=== PATIENT | male | born 1950 | race Caucasian/White ===

== ENCOUNTER 2020-10-24 06:50 | Day surgery (SDC) | payer MEDICARE, BC ==
[2020-10-22 10:26] VITALS: BMI 25.9
[2020-10-24] MEDS ORDERED: LACTATED RINGERS 1,000 ML IV ONE (07:45)
[2020-10-24] MEDS ORDERED: LIDOCAINE 1% (10MG/ML) FOR IV START INTRADERMA ONE (07:45)
[2020-10-24 07:59] VITALS: RESP 16; TEMP 97.6
[2020-10-24] MEDS ORDERED: PROPOFOL 10 MG/ML 20 ML VIAL IV ONE (07:59)
--- NOTE | 2020-10-24 08:13 | P.PCN ---
Date of Procedure: 10/24/20 Procedure(s) Performed: BRIEF HISTORY: Patient is a 70-year-old pleasant white male scheduled for an flexible sigmoidoscope as part of follow-up of recurrent rectal polyp that was initially resected a colonoscopy in [address] Rivera. He had multiple colonoscopies since then in the last one was performed in January [address] Mckinney and the polyp was removed and biopsies revealed tubular villous adenoma. He scheduled for follow-up endoscopy today. PROCEDURE PERFORMED: Colonoscopy with biopsy and argon plasma coagulation. PREOPERATIVE DIAGNOSIS: Follow-up recurrent distal rectal polyp. IV sedation per Anesthesia. PROCEDURE: After informed consent was obtained, the patient, was brought into the endoscopy unit. IV sedation was administered by Anesthesia under continuous monitoring. Digital rectal examination was normal. Initially the Olympus CF-160 flexible video colonoscope was then inserted in the rectum, gradually advanced into the descending colon. Careful examination was performed. Prep was excellent. Mucosa of the descending colon, sigmoid colon appeared normal. In the distal rectum about 3 cm above the dentate line there was scarring noted at the site of previous polypectomy and there was a 2-3 mm residual polyp identified. Multiple biopsies were done from this area following which argon plasma coagulation was performed. Retroflexion was performed in the rectum and monitor hemorrhoids were seen. The patient tolerated the procedure well. IMPRESSION: 3 mm residual distal rectal polyp status post multiple biopsies followed by argon plasma coagulation Sigmoid diverticulosis RECOMMENDATIONS: Findings of this examination were discussed with the patient as well as his family. He was advised to follow with the biopsy results and based on the results will plan a repeat sigmoidoscopy in 6 months to one year..
[2020-10-24 08:29] VITALS: BP 104/68; PULSE 70
== END 2020-10-24 08:48 | disposition home or self-care (01) ==
LOC: ORWHC2ENDO 06:50
PROVIDERS: ATTEND Internal Medicine Gastroenterology
DX: K57.30 Diverticulosis of large intestine without perforation or abscess without bleeding (principal); K62.1 Rectal polyp; I25.2 Old myocardial infarction; I11.0 Hypertensive heart disease with heart failure; I50.9 Heart failure, unspecified; E78.5 Hyperlipidemia, unspecified; I48.91 Unspecified atrial fibrillation; G40.909 Epilepsy, unspecified, not intractable, without status epilepticus; Z79.82 Long term (current) use of aspirin; Z79.01 Long term (current) use of anticoagulants; Z95.810 Presence of automatic (implantable) cardiac defibrillator
CPT/HCPCS: 45331; 45346; 88305; J2704

== ENCOUNTER → 2021-05-22 | Day surgery (SDC) | payer MEDICARE, BC ==
[2021-05-21 10:11] VITALS: BMI 25.1
[~2021-05-22] MED LIST: LACTATED RINGERS 1,000 ML IV SCH; LIDOCAINE 1% (10MG/ML) FOR IV START INTRADERMA PRN; PROPOFOL 10 MG/ML 20 ML VIAL IV ONE
[2021-05-22 09:38] VITALS: TEMP 96.3
--- NOTE | 2021-05-22 10:15 | P.PCN ---
Date of Procedure: 05/22/21 Procedure(s) Performed: BRIEF HISTORY: Patient is a 70-year-old pleasant white male scheduled for an elective colonoscopy as a part of follow-up of recurrent rectal polyp and history of colon polyps.He had upper Flexible sigmoid endoscopy in October 2020 and there was a residual rectal polyp noted for which she underwent biopsy and argon plasma coagulation. PROCEDURE PERFORMED: Colonoscopy. PREOPERATIVE DIAGNOSIS: Follow-up colon polyps andl recurrent large rectal polyp.. IV sedation per Anesthesia. PROCEDURE: After informed consent was obtained, the patient, was brought into the endoscopy unit. IV sedation was administered by Anesthesia under continuous monitoring. Digital rectal examination was normal. Initially the Olympus CF-160 flexible video colonoscope was then inserted in the rectum, gradually advanced into the cecum without any difficulty. Careful examination was performed as the scope was gradually being withdrawn. Ileocecal valve and the appendiceal orifice were visualized and appeared normal. Prep was excellent. Mucosa of the cecum, ascending colon, transverse colon, descending colon, sigmoid colon, and rectum appeared normal. Scattered sigmoid diverticulosis seen. In the distal rectum there was scarring noted at the site of previous polypectomy. There was one small area measuring about 2 mm in size at the site of previous polypectomy which was biopsied. Retroflexion was performed in the rectum and no lesions were seen. The patient tolerated the procedure well. IMPRESSION: 2 mm polyp in the rectum status post cold biopsy No residual rectal polyp noted Scattered sigmoid diverticulosis RECOMMENDATIONS: Findings of this examination were discussed with the patient as his family. He was advised to follow with the biopsy results and have a repeat colonoscopy in 3 years.
[2021-05-22 11:22] VITALS: BP 98/56; PULSE 81; RESP 18
== END ==
LOC: ORWHC2ENDO 08:52
PROVIDERS: ATTEND Internal Medicine Gastroenterology
DX: Z12.11 Encounter for screening for malignant neoplasm of colon (principal); K63.5 Polyp of colon; K21.9 Gastro-esophageal reflux disease without esophagitis; Z86.010 Personal history of colon polyps; I11.0 Hypertensive heart disease with heart failure; I50.9 Heart failure, unspecified; E78.5 Hyperlipidemia, unspecified; I48.91 Unspecified atrial fibrillation; Z95.810 Presence of automatic (implantable) cardiac defibrillator; Z86.73 Personal history of transient ischemic attack (TIA), and cerebral infarction without residual deficits; Z79.01 Long term (current) use of anticoagulants; Z79.899 Other long term (current) drug therapy
CPT/HCPCS: 88305; 45380; J2704

== ENCOUNTER 2022-11-23 08:23 | Inpatient (IN) | payer MEDICARE, BC ==
--- NOTE | 2022-11-23 09:19 | ED ---
General Adult HPI - General Chief complaint: Recheck/Abnormal Lab/Rx Stated complaint: Retaining Fluid,history of Congestive Heart Failur Time Seen by Provider: 11/23/22 08:51 Source: patient, family, RN notes reviewed Mode of arrival: wheelchair Limitations: no limitations - History of Present Illness Initial comments: Patient is a pleasant 72-year-old male presents emergency department with concerns with dyspnea. [facility]. Patient had his diuretics changed. Patient has had minimal increase in w eight the past few days and took extra medication however still has some dyspnea. Patient has mild fullness feeling in his chest. No leg swelling. Patient is having increased fatigue. Patient has lost around 25 pounds in the past 2 months prior to medication changes for CHF. - Related Data Home Medications Medication Instructions Recorded Confirmed ALPRAZolam [Xanax] 0.5 mg PO BID PRN 10/22/20 05/21/21 Aspirin 81 mg PO DAILY 10/22/20 05/21/21 Atorvastatin [Lipitor] 40 mg PO HS 10/22/20 05/22/21 Famotidine [Pepcid] 40 mg PO DAILY 10/22/20 05/21/21 Furosemide [Lasix] 80 mg PO Q48H 10/22/20 05/22/21 Meloxicam [Mobic] 7.5 mg PO DAILY 10/22/20 05/22/21 Nitroglycerin Sl Tabs [Nitrostat] 0.4 mg SUBLINGUAL Q5M PRN 10/22/20 05/21/21 [place]-3 Fatty Acids/Fish Oil [Fish 1 each PO DAILY 10/22/20 05/22/21 Oil 1,000 mg Softgel] Sotalol [Betapace] 180 mg PO DAILY 10/22/20 05/21/21 Spironolactone [Aldactone] 25 mg PO DAILY 10/22/20 05/22/21 Warfarin [Coumadin] 2.5 mg PO SUTUWETHSA 10/22/20 05/21/21 Warfarin [Coumadin] 5 mg PO MOFR 10/22/20 05/21/21 carvediloL [Coreg] 25 mg PO BID 10/22/20 05/21/21 levETIRAcetam [Keppra] 1,000 mg PO Q12HR 10/22/20 05/21/21 lisinopriL [Zestril] 10 mg PO HS 10/22/20 05/22/21 Allergies Allergy/AdvReac Type Severity Reaction Status Date / Time No Known Allergies Allergy Verified 11/23/22 08:45 Review of Systems ROS Statement: Those systems with pertinent positive or pertinent negative responses have been documented in the HPI. ROS Other: All systems not noted in ROS Statement are negative. Constitutional: Denies: fever ENT: Denies: ear pain Respiratory: Reports: dyspnea. Denies: cough Cardiovascular: Reports: as per HPI, chest pain Endocrine: Reports: fatigue Musculoskeletal: Denies: back pain Neurological: Denies: headache Past Medical History Past Medical History: Atrial Fibrillation, Heart Failure, CVA/TIA, GERD/Reflux, Hyperlipidemia, Hypertension, Myocardial Infarction ([place]), Seizure Disorder Additional Past Medical History / Comment(s): [place] x3, CVA 10-12 yrs. ago-started keppra after, last seizure >10 yrs. ago, has had colon polyp that keeps coming back Last Myocardial Infarction Date:: August 2002 History of Any Multi-Drug Resistant Organisms: None Reported Past Surgical History: AICD, Heart Catheterization With Stent, Orthopedic Surgery Additional Past Surgical History / Comment(s): colonoscopies, cristel. shoulder surg. as a teen, BILAT CATARACTS REMOVED WITH LENS IMPLANTS Past Anesthesia/Blood Transfusion Reactions: No Reported Reaction Date of Last Stent Placement:: 2002 Type of Cardiac Device: Permanent Pacemaker, AICD Device Placement Date:: [employer]-replaced in 2019 Past Psychological History: Anxiety Smoking Status: Former smoker Past Alcohol Use History: None Reported Past Drug Use History: None Reported - Past Family History Mother Family Medical History: No Reported History General Exam Limitations: no limitations General appearance: alert, in no apparent distress Head exam: Present: atraumatic Eye exam: Present: normal appearance Neck exam: Present: normal inspection Respiratory exam: Present: normal lung sounds bilaterally Cardiovascular Exam: Present: regular rate, normal rhythm GI/Abdominal exam: Present: soft. Absent: tenderness Extremities exam: Present: normal inspection Neurological exam: Present: alert Psychiatric exam: Present: normal affect, normal mood Skin exam: Present: normal color Course Vital Signs 11/23/22 11/23/22 08:45 10:21 Temperature 97.7 F Pulse Rate 86 76 Respiratory 17 18 Rate Blood Pressure 99/54 76/53 O2 Sat by Pulse 96 100 Oximetry EKG Findings - EKG Results: EKG: interpreted by ERMD (Paced rhythm with a rate of 81. Left axis. Wide QRS complex with nonspecific ST-T changes.) Medical Decision Making - Medical Decision Making Repeat EKG shows paced rhythm with a rate of 75. Left axis. Wide QRS complex. Nonspecific ST-T. Called into room. did witness patient become unresponsive and believe he was defibrillated. Patient had no pulse. CPR was done for approximately 15-20 seconds and pulse was obtained. Patient did have paced rhythm on the monitor. Patient did then have return of consciousness and is acting appropriately. Patient only can plaints of continued symptoms which have improved from previous. Discomfort in his chest is mild. Dyspnea is mild. Admitting physic vincent and sheep rancher have been paged. Review of rhythm strip has concerns for possible V. tach. Was pt. sent in by a medical professional or institution (, PA, LOAD OUT SUPERVISOR, urgent c are, hospital, or shelter...) When possible be specific @ -No Did you speak to anyone other than the patient for history (EMS, parent, family, police, friend...)? What history was obtained from this source @ - is present and helps provide history including recent hospitalization Did you review nursing and triage notes (agree or disagree)? Why? @ -I reviewed and agree with nursing and triage notes Were old charts reviewed (outside hosp., previous admission, EMS record, old EKG, old radiological studies, urgent care reports/EKG's, shelter records)? Report findings @ -No old charts reviewed Differential Diagnosis (chest pain, altered mental status, abdominal pain women, abdominal pain men, vaginal bleeding, weakness, fever, dyspnea, syncope, headache, dizziness, GI bleed, back pain, seizure, CVA, palpatations, mental health, musculoskeletal)? @ -Differential Dyspnea: Coronary syndrome, arrhythmia, tamponade, asthma, COPD, pulmonary embolism, pneumonia, pneumothorax, pulmonary effusion, anaphylaxis, diabetic ketoacidosis, flailed chest, pulmonary contusion, diaphragmatic rupture, anemia, neuromus cular, this is not meant to be an all-inclusive list. EKG interpreted by me (3pts min.). @ -As above X-rays interpreted by me (1pt min.). @ -Chest x-ray shows hyperinflation. No acute process. CT interpreted by me (1pt min.). @ -None done U/S interpreted by me (1pt. min.). @ -None done What testing was considered but not performed or refused? (CT, X-rays, U/S, labs)? Why? @ -None What meds were considered but not given or refused? Why? @ -None Did you discuss the management of the patient with other professionals (professionals i.e. DrBobbi, PA, LOAD OUT SUPERVISOR, lab, RT, psych nurse, clinical social work aide, catalytic converter operator helper, teacher, health promotion officer, director case management)? Give summary @ -Case was discussed in detail with Dr. Morelos will admit For Dr. Lucero cheney. Case also discussed with Dr. Mora who will consult and come evaluate patient. Was smoking cessation discussed for >3mins.? @ -No Was critical care preformed (if so, how long)? @ -32 minutes of critical care time Were there social determinants of health that impacted care today? How? (Homelessness, low income, unemployed, alcoholism, drug addiction, transportation, low edu. Level, literacy, decrease access to med. care, assisted, rehab)? @ -No Was there de-escalation of care discussed even if they declined (Discuss DNR or withdrawal of care, Hospice)? DNR status @ -No What co-morbidities impacted this encounter? (DM, HTN, Smoking, COPD, CAD, Cancer, CVA, ARF, Chemo, Hep., AIDS, mental health diagnosis, sleep apnea, morbi d obesity)? @ -None Was patient admitted / discharged? Hospital course, mention meds given and route, prescriptions, significant lab abnormalities, going to OR and other pertinent info. @ -Patient did arrest CPR was done. Probable defibrillator firing. Case was discussed with cardiology who will come evaluate. They recommend holding ramonita tional antidysrhythmic at this time. Patient will be admitted. Admission orders written. Patient is anticoagulated with Coumadin with appropriate INR. Undiagnosed new problem with uncertain prognosis? @ -No Drug Therapy requiring intensive monitoring for toxicity (Heparin, Nitro, Insulin, Cardizem)? @ -No Were any procedures done? @ -No Diagnosis/symptom? @ -Chest pain, dyspnea, cardiac arrest Acute, or Chronic, or Acute on Chronic? @ -Acute, acute, acute Uncomplicated (without systemic symptoms) or Complicated (systemic symptoms)? @ -Chest pain or dyspnea were associated with cardiac arrest and probable V. fib. Side effects of treatment? @ -No Exacerbation, Progression, or Severe Exacerbation? @ -No Poses a threat to life or bodily function? How? (Chest pain, [place], [place], pneumonia, PE, COPD, DKA, ARF, appy, cholecystitis, CVA, Diverticulitis, Homicidal, Suicidal, threat to staff... and all critical care pts) @ -Cardiac arrest poses threat to life. - Lab Data Result diagrams: 11/23/22 09:11/23/22 09: Lab Results 11/23/22 11/23/22 11/23/22 Range/Units : 09:11 12: WBC 10.0 (3.8-10.6) k/uL RBC 5.34 (4.30-5.90) m/uL Hgb 16.2 (13.0-17.5) gm/dL Hct 50.7 (39.0-53.0) % MCV 95.0 (80.0-100.0) fL MCH 30.3 (25.0-35.0) pg MCHC 31.9 (31.0-37.0) g/dL RDW 14.7 (11.5-15.5) % Plt Count 128 L (150-450) k/uL MPV 8.3 Neutrophils % 91 % Lymphocytes % 3 % Monocytes % 4 % Eosinophils % 1 % Basophils % 0 % Neutrophils # 9.1 H (1.3-7.7) k/uL Lymphocytes # 0.3 L (1.0-4.8) k/uL Monocytes # 0.4 (0-1.0) k/uL Eosinophils # 0.1 (0-0.7) k/uL Basophils # 0.0 (0-0.2) k/uL PT 25.6 H (9.0-12.0) sec INR 2.6 H (<1.2) APTT 31.7 H (22.0-30.0) sec Sodium 129 L (137-145) mmol/L Potassium 4.5 (3.5-5.1) mmol/L Chloride 90 L (98-107) mmol/L Carbon Dioxide 25 (22-30) mmol/L Anion Gap 14 mmol/L BUN 38 H (9-20) mg/dL Creatinine 2.01 H (0.66-1.25) mg/dL Est GFR (CKD-EPI)AfAm 37 (>60 ml/min/1.73 sqM) Est GFR (CKD-EPI)NonAf 32 (>60 ml/min/1.73 sqM) Glucose 116 H (74-99) mg/dL Calcium 9.1 (8.4-10.2) mg/dL Total Bilirubin 1.4 H (0.2-1.3) mg/dL AST 89 H (17-59) U/L ALT 149 H (4-49) U/L Alkaline Phosphatase 87 (38-126) U/L Troponin I (0.000-0.034) ng/mL NT-Pro-B Natriuret Pep 98193 pg/mL Total Protein 6.9 (6.3-8.2) g/dL Albumin 4.2 (3.5-5.0) g/dL Urine Color Urine Appearance (Clear) Urine pH (5.0-8.0) Ur Specific [place] (1.001-1.035) Urine Protein (Negative) Urine Glucose (UA) (Negative) Urine Ketones (Negative) Urine Blood (Negative) Urine Nitrite (Negative) Urine Bilirubin (Negative) Urine Urobilinogen (<2.0) mg/dL Ur Leukocyte Esterase (Negative) Urine RBC (0-5) /hpf Urine WBC (0-5) /hpf Urine Bacteria (None) /hpf Hyaline Casts (0-2) /lpf Urine Mucus (None) /hpf Influenza Type A (PCR) (Not Detectd) Influenza Type B (PCR) (Not Detectd) RSV (PCR) (Not Detectd) SARS-CoV-2 (PCR) (Not Detectd) 11/23/22 11/23/22 11/23/22 Range/Units 09:28 09:28 09:28 WBC (3.8-10.6) k/uL RBC (4.30-5.90) m/uL Hgb (13.0-17.5) gm/dL Hct (39.0-53.0) % MCV (80.0-100.0) fL MCH (25.0-35.0) pg MCHC (31.0-37.0) g/dL RDW (11.5-15.5) % Plt Count (150-450) k/uL MPV Neutrophils % % Lymphocytes % % Monocytes % % Eosinophils % % Basophils % % Neutrophils # (1.3-7.7) k/uL Lymphocytes # (1.0-4.8) k/uL Monocytes # (0-1.0) k/uL Eosinophils # (0-0.7) k/uL Basophils # (0-0.2) k/uL PT (9.0-12.0) sec INR (<1.2) APTT (22.0-30.0) sec Sodium (137-145) mmol/L Potassium (3.5-5.1) mmol/L Chloride (98-107) mmol/L Carbon Dioxide (22-30) mmol/L Anion Gap mmol/L BUN (9-20) mg/dL Creatinine (0.66-1.25) mg/dL Est GFR (CKD-EPI)AfAm (>60 ml/min/1.73 sqM) Est GFR (CKD-EPI)NonAf (>60 ml/min/1.73 sqM) Glucose (74-99) mg/dL Calcium (8.4-10.2) mg/dL Total Bilirubin (0.2-1.3) mg/dL AST (17-59) U/L ALT (4-49) U/L Alkaline Phosphatase (38-126) U/L Troponin I 0.086 H* (0.000-0.034) ng/mL NT-Pro-B Natriuret Pep pg/mL Total Protein (6.3-8.2) g/dL Albumin (3.5-5.0) g/dL Urine Color Light Yellow Urine Appearance Clear (Clear) Urine pH 7.0 (5.0-8.0) Ur Specific [place] 1.009 (1.001-1.035) Urine Protein 2+ H (Negative) Urine Glucose (UA) Negative (Negative) Urine Ketones Negative (Negative) Urine Blood Negative (Negative) Urine Nitrite Negative (Negative) Urine Bilirubin Negative (Negative) Urine Urobilinogen <2.0 (<2.0) mg/dL Ur Leukocyte Esterase Negative (Negative) Urine RBC 2 (0-5) /hpf Urine WBC 3 (0-5) /hpf Urine Bacteria Rare H (None) /hpf Hyaline Casts 30 H (0-2) /lpf Urine Mucus Rare H (None) /hpf Influenza Type A (PCR) Not Detected (Not Detectd) Influenza Type B (PCR) Not Detected (Not Detectd) RSV (PCR) Not Detected (Not Detectd) SARS-CoV-2 (PCR) Not Detected (Not Detectd) Critical Care Time Critical Care Time: Yes Total Critical Care Time: 32 Disposition Clinical Impression: Cardiac arrest, Chest pain Disposition: ADMITTED IP TO THIS [facility] Condition: Serious Is patient prescribed a controlled substance at d/c from ED?: No Referrals: Cristiano Love DO [Primary Care Provider] - 1-2 days Time of Disposition: 12:02
[2022-11-23 10:14] LABS: Basophils % (A) 0 %; Eosinophils # (A) 0.1 k/uL (0-0.7); Eosinophils % (A) 1 %; HCT 50.7 % (39.0-53.0); HGB 16.2 gm/dL (13.0-17.5); Lymphocytes # (A) 0.3 k/uL (1.0-4.8); Lymphocytes % (A) 3 %; MCH 30.3 pg (25.0-35.0); MCHC 31.9 g/dL (31.0-37.0); Mean Platelet Volume 8.3; Monocytes # (A) 0.4 k/uL (0-1.0); Monocytes % (A) 4 %; Neutrophils # (A) 9.1 k/uL (1.3-7.7); Neutrophils % (A) 91 %; Platelet Count 128 k/uL (150-450); RBC 5.34 m/uL (4.30-5.90); RDW 14.7 % (11.5-15.5)
[2022-11-23 10:31] LABS: INR 2.6 (<1.2); Prothrombin Time 25.6 sec (9.0-12.0)
[2022-11-23 10:32] LABS: Partial Thromboplastin Time 31.7 sec (22.0-30.0)
--- NOTE | 2022-11-23 10:35 | XR ---
EXAMINATION TYPE: XR chest 2V DATE OF EXAM: 11/23/2022 COMPARISON: None INDICATION: Fatigue fluid retention CHF TECHNIQUE: Single frontal view of the chest is obtained. FINDINGS: The heart size is normal. The pulmonary vasculature is normal. The lungs are clear. Pacemaker overlies the left chest. IMPRESSION: 1. No acute pulmonary process. Radiologic findings may lag behind the clinical course.
[2022-11-23 10:38] LABS: Appearance,Urine Clear (Clear); Bacteria,Urine Rare /hpf; Bilirubin,Urine Negative (Negative); Blood,Urine Negative (Negative); Color,Urine Light Yellow; Glucose,Urine (UA) Negative (Negative); Hyaline Casts,Urine 30 /lpf (0-2); Ketones,Urine Negative (Negative); Leukocyte Esterase,Urine Negative (Negative); Mucus,Urine Rare /hpf; Nitrite,Urine Negative (Negative); Protein,Urine 2+ (Negative); RBC,Urine 2 /hpf (0-5); Specific Gravity,Urine 1.009 (1.001-1.035); Urobilinogen,Urine <2.0 mg/dL (<2.0); WBC,Urine 3 /hpf (0-5)
[2022-11-23 10:49] LABS: ALT 149 U/L (4-49); AST 89 U/L (17-59); African American GFR (CKD) 37 (>60 ml/min/1.73 sqM); Albumin 4.2 g/dL (3.5-5.0); Alkaline Phosphatase 87 U/L (38-126); Anion Gap 14 mmol/L; Blood Urea Nitrogen 38 mg/dL (9-20); Calcium 9.1 mg/dL (8.4-10.2); Carbon Dioxide 25 mmol/L (22-30); Chloride 90 mmol/L (98-107); Glucose 116 mg/dL (74-99); Non-African American GFR(CKD) 32 (>60 ml/min/1.73 sqM); Potassium 4.5 mmol/L (3.5-5.1); Sodium 129 mmol/L (137-145); Total Bilirubin 1.4 mg/dL (0.2-1.3); Total Protein 6.9 g/dL (6.3-8.2)
[2022-11-23 11:13] LABS: NT-Pro-B-Type Natriuretic Pept 33100 pg/mL
[2022-11-23] MEDS ORDERED: ASPIRIN 81 MG PO STA (12:10)
[2022-11-23] MEDS ORDERED: NITROGLYCERIN SL TABS 0.4 MG TAB SUBLINGUAL PRN (12:10)
[2022-11-23] MEDS ORDERED: METOCLOPRAMIDE 5 MG/ML 2 ML VIAL IVP STA (12:38)
[2022-11-23 13:03] LABS: Magnesium 2.2 mg/dL (1.6-2.3)
[2022-11-23] MEDS ORDERED: ALPRAZolam 0.5 MG TAB PO PRN (13:08)
[2022-11-23 13:19] LABS: T4, Free (Free Thyroxine) 1.3 ng/dL (0.78-2.19)
[2022-11-23] MEDS ORDERED: SODIUM CHLORIDE 0.9% 250 ML IV ONE (13:26)
--- NOTE | 2022-11-23 14:11 | P.CRDCN ---
History of Present Illness History of present illness: HISTORY OF PRESENTING ILLNESS Patient is a pleasant 72-year-old male with a history of hypertension, hyperlipidemia, gout, stroke, CAD status post 3 MIs with ischemic cardiomyopathy, atrial fibrillation, VT status post previous shocked approximately 10 years ago who presents secondary to some fatigue, vague malaise and some abdominal bloating and pain. He admits he normally follows with [facility] cardiology and has had extensive workup including initially MD 20 years ago with resultant ischemic cardiomyopathy and AICD. He recently was at [facility] for volume overload and had been placed on torsemide, a change from his normal Lasix. He denies any further edema. He has however had approximately 25 pounds unintentional weight loss over the last 2-3 months which she is not feels just water weight. He has been on sotalol for some time which she believes was related to atrial fibrillation. He denies any concrete fevers however was feeling somewhat feverish and chilled over the last 24 hours. He states normally his kidney function is normal. With his prior MD he had more chest pain. He is admitted related to some more abdominal pressure somewhat radiating up in his chest over the last 24 hours. Currently is not having any. After discharge 1-2 weeks ago from [facility] some changes in his medications he had also had a gout attack however denies any NSAID use. He has been on sotalol for some time however only taking it 120 mg daily. His blood pressure usually borderline in the 90s over 60s. Initial EKG shows no significant Q waves, ventricular paced rhythm at 80 bpm, right bundle branch morphology with prolonged QTC 514. Patient then had an episode where he was resting with his eyes closed unclear if he actually lost consciousness however on monitor noted to have proximally 20 seconds of V. fib and underwent defibrillation 1. Repeat EKG does show atrial paced and intraocular paced rhythm with continued prolonged QTC 550. After defibrillation he states he is feeling fine without any chest pain or pressure. No shortness breath and lying flat on his back. He did have a [place] catheter placed secondary to concern of feeling bloated however only approximately 200 mL urine output and not much urinary retention. REVIEW OF SYSTEMS At the time of my exam: CONSTITUTIONAL: +"feverish" and subjective chills. CARDIOVASCULAR: Denies chest pain, no shortness of breath, orthopnea, PND or palpitations. RESPIRATORY: Denies cough. GASTROINTESTINAL: +abdominal pain radiating to his chest, no diarrhea, constipation, nausea or vomiting. MUSCULOSKELETAL: Denies myalgias. NEUROLOGIC: Denies numbness, tingling or weakness. ENDOCRINE: Denies fatigue, +25 lb weight loss over last 3 months, no polydipsia or polyurina. GENITOURINARY: Denies burning, hematuria or urgency with micturation. HEMATOLOGIC: Denies history of anemia or bleeding. PHYSICAL EXAMINATION Vital signs reviewed. CONSTITUTIONAL: No apparent distress. HEENT: Head is normocephalic. Pupils are equal, round. Sclerae anicteric. Mucous membranes of the mouth are moist. No JVD. No carotid bruit. CHEST EXAMINATION: Lungs are clear to auscultation. No chest wall tenderness is noted on palpation or with deep breathing. HEART EXAMINATION: Regular rate and rhythm. S1, S2 heard. No murmurs, gallops or rub. ABDOMEN: Soft, nontender. Positive bowel sounds. EXTREMITIES: 2+ peripheral pulses, no lower extremity edema and no calf tenderness. NEUROLOGIC EXAMINATION: Patient is awake, alert and oriented x3. ASSESSMENT 1. V. fib likely related to prolonged QT, sotalol use with acute kidney injury 2. Prolonged QT likely related to sotalol and acute kidney injury 3. Acute kidney injury, unclear baseline however patient states no kidney disorder. May be related to over diuresis on new torsemide 4. Chronic systolic heart failure status post AICD 5. Ischemic cardiomyopathy 6. CAD status post PCI 3 7. Abdominal pain radiating into his chest. May be more infectious etiology or other. Not typical of his prior angina 8. Mildly elevated troponins 9. 25 pound weight loss over last 3 months 10. Borderline blood pressures PLAN Patient with V. fib arrest with EKG showing prolonged QTc likely mainly related to use of sotalol with acute kidney injury. Hold any QT will prolonging medications including sotalol. Obtain records from [facility] including baseline creatinine. Acute kidney injury may be related to over diuresis after he was placed on torsemide after last discharge. Currently does not appear volume overloaded and give 250 mL bolus and monitor response. Not having any obvious angina-type symptoms and trend troponins. Check 2-D echo. Given more obvious source of prolonged QT and not having significant angina with kidney injury we will monitor for need for ischemic workup. Interrogate AICD. Further recommendations to follow. Past Medical History Past Medical History: Atrial Fibrillation, Heart Failure, CVA/TIA, GERD/Reflux, Hyperlipidemia, Hypertension, Myocardial Infarction ([place]), Seizure Disorder Additional Past Medical History / Comment(s): MD x3, CVA 10-12 yrs. ago-started keppra after, last seizure >10 yrs. ago, has had colon polyp that keeps coming back Last Myocardial Infarction Date:: August 2002 History of Any Multi-Drug Resistant Organisms: None Reported Past Surgical History: AICD, Heart Catheterization With Stent, Orthopedic Surgery Additional Past Surgical History / Comment(s): colonoscopies, cristel. shoulder surg. as a teen, BILAT CATARACTS REMOVED WITH LENS IMPLANTS Past Anesthesia/Blood Transfusion Reactions: No Reported Reaction Date of Last Stent Placement:: 2002 Type of Cardiac Device: Permanent Pacemaker, AICD Device Placement Date:: Celmatix-replaced in 2019 Past Psychological History: Anxiety Smoking Status: Former smoker Past Alcohol Use History: None Reported Past Drug Use History: None Reported - Past Family History Mother Family Medical History: No Reported History Medications and Allergies Home Medications Medication Instructions Recorded Confirmed Type Aspirin 81 mg PO DAILY 10/22/20 11/23/22 History Atorvastatin [Lipitor] 40 mg PO HS 10/22/20 11/23/22 History Famotidine [Pepcid] 40 mg PO BID 10/22/20 11/23/22 History Nitroglycerin Sl Tabs [Nitrostat] 0.4 mg SL Q5M PRN 10/22/20 11/23/22 History Spironolactone [Aldactone] 25 mg PO DAILY 10/22/20 11/23/22 History Warfarin [Coumadin] 5 mg PO MOFR@1800 10/22/20 11/23/22 History levETIRAcetam [Keppra] 500 mg PO DAILY 10/22/20 11/23/22 History ALPRAZolam [Xanax] 0.25 mg PO DAILY PRN 11/23/22 11/23/22 History Colchicine 0.6 mg PO BID 11/23/22 11/23/22 History Sotalol [Betapace] 120 mg PO DAILY 11/23/22 11/23/22 History Torsemide [Demadex] 100 mg PO DAILY 11/23/22 11/23/22 History Torsemide [Demadex] 100 mg PO DAILY PRN 11/23/22 11/23/22 History Warfarin [Coumadin] 2.5 mg PO SUTUWETHSA@1800 11/23/22 11/23/22 History allopurinoL 100 mg PO DAILY 11/23/22 11/23/22 History carvediloL [Coreg] 12.5 mg PO BID 11/23/22 11/23/22 History levETIRAcetam [Keppra] 1,000 mg PO HS 11/23/22 11/23/22 History lisinopriL [Zestril] 5 mg PO HS 11/23/22 11/23/22 History predniSONE See Taper PO DIRECTED 11/23/22 11/23/22 History Allergies Allergy/AdvReac Type Severity Reaction Status Date / Time No Known Allergies Allergy Verified 11/23/22 13:28 Physical Exam Vitals: Vital Signs Temp Pulse Resp BP Pulse Ox 11/23/22 13:35 98.4 F 75 17 85/58 100 11/23/22 12:00 75 18 91/55 100 11/23/22 11:45 75 18 111/87 100 11/23/22 10:21 76 18 76/53 100 11/23/22 08:45 97.7 F 86 17 99/54 96 Intake and Output 11/22/22 11/23/22 11/23/22 22:59 06:59 14:59 Output Total 100 Balance -100 Output: Urine 100 Uretheral ([place]) 100 Other: Voiding Method Toilet Weight 68.039 kg Results 11/23/22 09:28 11/23/22 09:28 Cardiac Enzymes 11/23/22 11/23/22 Range/Units 09:28 09:28 AST 89 H (17-59) U/L Troponin I 0.086 H* (0.000-0.034) ng/mL Coagulation 11/23/22 Range/Units 09:28 PT 25.6 H (9.0-12.0) sec APTT 31.7 H (22.0-30.0) sec CBC 11/23/22 Range/Units 09:28 WBC 10.0 (3.8-10.6) k/uL RBC 5.34 (4.30-5.90) m/uL Hgb 16.2 (13.0-17.5) gm/dL Hct 50.7 (39.0-53.0) % Plt Count 128 L (150-450) k/uL Comprehensive Metabolic Panel 11/23/22 Range/Units 09:28 Sodium 129 L (137-145) mmol/L Potassium 4.5 (3.5-5.1) mmol/L Chloride 90 L (98-107) mmol/L Carbon Dioxide 25 (22-30) mmol/L BUN 38 H (9-20) mg/dL Creatinine 2.01 H (0.66-1.25) mg/dL Glucose 116 H (74-99) mg/dL Calcium 9.1 (8.4-10.2) mg/dL AST 89 H (17-59) U/L ALT 149 H (4-49) U/L Alkaline Phosphatase 87 (38-126) U/L Total Protein 6.9 (6.3-8.2) g/dL Albumin 4.2 (3.5-5.0) g/dL Current Medications Generic Name Dose Route Start Last Admin Trade Name Freq PRN Reason Stop Dose Admin Alprazolam 0.5 mg 11/23/22 13:08 Alprazolam 0.5 Mg Tab PO BID PRN Anxiety Aspirin 325 mg 11/24/22 09:00 Aspirin 325 Mg Tab PO DAILY QAMAR Atorvastatin Calcium 40 mg 11/23/22 21:00 Atorvastatin 40 Mg Tab PO HS QAMAR Levetiracetam 1,000 mg 11/23/22 21:00 Levetiracetam 500 Mg Tab PO Q12HR QAMAR Nitroglycerin 0.4 mg 11/23/22 12:10 Nitroglycerin Sl Tabs 0.4 Mg Tab SUBLINGUAL Q5M PRN Chest Pain Intake and Output 11/22/22 11/23/22 11/23/22 22:59 06:59 14:59 Output Total 100 Balance -100 Output: Urine 100 Uretheral ([place]) 100 Other: Voiding Method Toilet Weight 68.039 kg Patient Weight 11/24/22 06:59 Weight 68.039 kg 11/23/22 09:28 11/23/22 09:28
[2022-11-23] MEDS ORDERED: MAGNESIUM SULFATE-D5W PMX 1 GM in DEXTROSE/WATER 1 100ML.BAG IVPB SCH (14:15)
--- NOTE | 2022-11-23 15:32 | P.HPIM ---
History of Present Illness H&P Date: 11/23/22 Chief Complaint: Short of breath This is a pleasant 72-year-old patient who follows with Dr. Cristiano Love. Cardiologists are [facility] sandip Ghosh. Back in 2002 patient was being considered for heart transplant. He underwent an cardiac resynchronization therapy along with a pacemaker. That turned out reviewed other effective. Patient had 3 coronary stents placed in 2002. No recent stress test. Patient was admitted to [facility] about 2 weeks ago. There for 4 days. Given IV diuretics. Lost about 8 pounds. Discharged home on different diuretics. Was stable. In the last 2 days patient started noticing decreased urine output. Also notices some chest pressure. Not feeling well. Denies any edema, any orthopnea. In the ER patient had a witnessed cardiac arrest. Apparently was in V. fib. His pacemaker went off. Patient received CPR for about 20 seconds. Had no pulse had loss consciousness. is present. Patient feels back to his normal self. Review of systems: GEN.: Tired EYES: None HEENT: None NECK: None RESPIRATORY: As above CARDIOVASCULAR: As above GASTROINTESTINAL: None GENITOURINARY: None MUSCULOSKELETAL: Some joint pains LYMPHATICS: None HEMATOLOGICAL: None PSYCHIATRY: None NEUROLOGICAL: None Social history: Smoked a pack a day for 35 years stopped in 2002. No alcohol now. 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 . Physical examination: VITAL SIGNS: 97.7, 86, 17, 99/54, 96% room air upon presentation GENERAL: BMI 24.2, reclining in bed awake comfortable. Left-sided pacemaker/AICD EYES: Pupils equal. Conjunctiva normal. HEENT: External appearance of nose and ears normal, oral cavity grossly normal. NECK: JVD not raised; masses not palpable. HEART: First and second heart sounds are normal; no edema. LUNGS: Respiratory rate normal; decreased breath sounds. ABDOMEN: Soft, nontender, liver spleen not palpable, no masses palpable. PSYCH: Alert and oriented x3; mood and affect normal. MUSCULOSKELETAL:No Clubbing/cyanosis;muscles-grossly intact. OA NEUROLOGICAL: Cranial nerves grossly intact; no facial asymmetry, power and sensation grossly intact. LYMPHATICS: No lymph nodes palpable in the axilla and neck INVESTIGATIONS, reviewed in the clinical context: White count 10 hemoglobin 16.2 platelets 128 INR 2.6 sodium 129 potassium 4.5 BUN 38 creatinine 2.01 AST 89 ALT 149 Troponin I 0.086, 0.071 ProBNP 20094 TSH 1.8 Influenza type A, B, RSV, COVID-19: Not detected EKG tracing personally reviewed by me-biventricular paced Chest x-ray film personally reviewed by me-cardiomegaly. Pacemaker. Some hyperinflation Assessment and plan: -Possible underlying unstable angina. Patient has known CAD with 3 stents about 20 years ago. Has not had any recent stress test. Presents with 2 days of chest pressure some shortness of breath. Not feeling well. Cardiology consulted -Episode of ventricular fibrillation with a short cardiac arrest in the ER. Witnessed. AICD went off. Downtime less than a minute. -CAD with 3 stents in 2002 -Seizure disorder Keppra -Gout patient on allopurinol and colchicine -GERD Pepcid -Chronic congestive heart failure from ischemic cardiomyopathy. EF not known. Diuretics as per cardiology. -Cardial renal syndrome. Baseline creatinine not known. We will request colostomy was to [place]. Renal ultrasound. Strict I's and O's. Patient UA is 2+ protein. -Persistent atrial fibrillation Pacemaker. Coumadin. -AICD/pacemaker with cardiac synchronization. Care was discussed with the patient and at the bedside. Questions answered. Cardiology consulted. Given the complexity and severity of patient's condition expect the patient to be in the hospital at least for 2 overnights Past Medical History Past Medical History: Atrial Fibrillation, Heart Failure, CVA/TIA, GERD/Reflux, Hyperlipidemia, Hypertension, Myocardial Infarction ([place]), Seizure Disorder Additional Past Medical History / Comment(s): [place] x3, CVA 10-12 yrs. ago-started keppra after, last seizure >10 yrs. ago, has had colon polyp that keeps coming back Last Myocardial Infarction Date:: August 2002 History of Any Multi-Drug Resistant Organisms: None Reported Past Surgical History: AICD, Heart Catheterization With Stent, Orthopedic Surgery Additional Past Surgical History / Comment(s): colonoscopies, cristel. shoulder surg. as a teen, BILAT CATARACTS REMOVED WITH LENS IMPLANTS Past Anesthesia/Blood Transfusion Reactions: No Reported Reaction Date of Last Stent Placement:: 2002 Type of Cardiac Device: Permanent Pacemaker, AICD Device Placement Date:: BBE-replaced in 2019 Past Psychological History: Anxiety Smoking Status: Former smoker Past Alcohol Use History: None Reported Past Drug Use History: None Reported - Past Family History Mother Family Medical History: No Reported History Medications and Allergies Home Medications Medication Instructions Recorded Confirmed Type Aspirin 81 mg PO DAILY 10/22/20 11/23/22 History Atorvastatin [Lipitor] 40 mg PO HS 10/22/20 11/23/22 History Famotidine [Pepcid] 40 mg PO BID 10/22/20 11/23/22 History Nitroglycerin Sl Tabs [Nitrostat] 0.4 mg SL Q5M PRN 10/22/20 11/23/22 History Spironolactone [Aldactone] 25 mg PO DAILY 10/22/20 11/23/22 History Warfarin [Coumadin] 5 mg PO MOFR@1800 10/22/20 11/23/22 History levETIRAcetam [Keppra] 500 mg PO DAILY 10/22/20 11/23/22 History ALPRAZolam [Xanax] 0.25 mg PO DAILY PRN 11/23/22 11/23/22 History Colchicine 0.6 mg PO BID 11/23/22 11/23/22 History Sotalol [Betapace] 120 mg PO DAILY 11/23/22 11/23/22 History Torsemide [Demadex] 100 mg PO DAILY 11/23/22 11/23/22 History Torsemide [Demadex] 100 mg PO DAILY PRN 11/23/22 11/23/22 History Warfarin [Coumadin] 2.5 mg PO SUTUWETHSA@1800 11/23/22 11/23/22 History allopurinoL 100 mg PO DAILY 11/23/22 11/23/22 History carvediloL [Coreg] 12.5 mg PO BID 11/23/22 11/23/22 History levETIRAcetam [Keppra] 1,000 mg PO HS 11/23/22 11/23/22 History lisinopriL [Zestril] 5 mg PO HS 11/23/22 11/23/22 History predniSONE See Taper PO DIRECTED 11/23/22 11/23/22 History Allergies Allergy/AdvReac Type Severity Reaction Status Date / Time No Known Allergies Allergy Verified 11/23/22 13:28 Physical Exam Vitals: Vital Signs Temp Pulse Resp BP Pulse Ox 11/23/22 12:00 75 18 91/55 100 11/23/22 11:45 75 18 111/87 100 11/23/22 10:21 76 18 76/53 100 11/23/22 08:45 97.7 F 86 17 99/54 96 Intake and Output 11/22/22 11/23/22 11/23/22 22:59 06:59 14:59 Output Total 100 Balance -100 Output: Urine 100 Uretheral ([place]) 100 Other: Voiding Method Toilet Weight 68.039 kg Results CBC & Chem 7: 11/23/22 09:28 11/23/22 09:28 Labs: Abnormal Lab Results - Last 24 Hours (Table) 11/23/22 11/23/22 11/23/22 Range/Units 09: 09: 09:28 Plt Count 128 L (150-450) k/uL Neutrophils # 9.1 H (1.3-7.7) k/uL Lymphocytes # 0.3 L (1.0-4.8) k/uL PT 25.6 H (9.0-12.0) sec INR 2.6 H (<1.2) APTT 31.7 H (22.0-30.0) sec Sodium 129 L (137-145) mmol/L Chloride 90 L (98-107) mmol/L BUN 38 H (9-20) mg/dL Creatinine 2.01 H (0.66-1.25) mg/dL Glucose 116 H (74-99) mg/dL Total Bilirubin 1.4 H (0.2-1.3) mg/dL AST 89 H (17-59) U/L ALT 149 H (4-49) U/L Troponin I (0.000-0.034) ng/mL Urine Protein (Negative) Urine Bacteria (None) /hpf Hyaline Casts (0-2) /lpf Urine Mucus (None) /hpf 11/23/22 11/23/22 Range/Units : 09:28 Plt Count (150-450) k/uL Neutrophils # (1.3-7.7) k/uL Lymphocytes # (1.0-4.8) k/uL PT (9.0-12.0) sec INR (<1.2) APTT (22.0-30.0) sec Sodium (137-145) mmol/L Chloride (98-107) mmol/L BUN (9-20) mg/dL Creatinine (0.66-1.25) mg/dL Glucose (74-99) mg/dL Total Bilirubin (0.2-1.3) mg/dL AST (17-59) U/L ALT (4-49) U/L Troponin I 0.086 H* (0.000-0.034) ng/mL Urine Protein 2+ H (Negative) Urine Bacteria Rare H (None) /hpf Hyaline Casts 30 H (0-2) /lpf Urine Mucus Rare H (None) /hpf
[2022-11-23] MEDS: carvediloL 12.5 MG TAB PO SCH ×2 (16:55→18:11)
[2022-11-23] MEDS: allopurinoL 100 MG TAB PO SCH (17:02)
[2022-11-23] MEDS ORDERED: WARFARIN 2.5 MG TAB PO SCH (18:00)
--- NOTE | 2022-11-23 18:07 | US ---
EXAMINATION TYPE: US renals and bladder DATE OF EXAM: 11/23/2022 COMPARISON: NONE CLINICAL INDICATION: Male, 72 years old with history of renal failure; Abnormal labs. Bladder garcia. EXAM MEASUREMENTS: Right Kidney: 10.8 x 5.1 x 4.6 cm Left Kidney: 10.3 x 4.5 x 5.5 cm The renal cortices are normal in thickness and echotexture without evidence of medical renal disease. Right Kidney: Multiple cysts seen throughout kidney with largest measured medial inferior = 3.1 x 2.6 x 2.6 cm. Left Kidney: Multiple cysts seen throughout kidney with largest measured superior medial = 2.4 x 1.9 x 2.3 cm. Trace fluid seen anterior to cortex. Bladder: Garcia visualized Bilateral Jets not seen due to garcia There is no evidence for hydronephrosis at this point in time. No nephrolithiasis is seen. No micha s are identified. The urinary bladder is anechoic. Bilateral ureteral jets are seen. IMPRESSION: 1. No solid renal mass or hydronephrosis or renal calcification. 2. No ultrasound evidence of medical renal disease.
[2022-11-23] MEDS: COLCHICINE 0.6 MG EACH PO SCH (20:41)
[2022-11-23] MEDS: ATORVASTATIN 40 MG TAB PO SCH (20:41)
[2022-11-23] MEDS: FAMOTIDINE 20 MG TAB PO SCH (20:41)
[2022-11-23] MEDS: levETIRAcetam 500 MG TAB PO SCH (20:41)
[2022-11-23] MEDS: ALPRAZolam 0.25 MG TAB PO PRN (22:57)
[2022-11-24] MEDS: carvediloL 12.5 MG TAB PO SCH ×2 (06:21→17:25)
[2022-11-24 08:27] LABS: INR 2.8 (<1.2); Prothrombin Time 26.9 sec (9.0-12.0)
[2022-11-24] MEDS: allopurinoL 100 MG TAB PO SCH (08:43)
[2022-11-24] MEDS: levETIRAcetam 500 MG TAB PO SCH ×2 (08:43→20:29)
[2022-11-24] MEDS: ASPIRIN 81 MG PO SCH (08:44)
[2022-11-24] MEDS: FAMOTIDINE 20 MG TAB PO SCH (08:44)
[2022-11-24] MEDS: COLCHICINE 0.6 MG EACH PO SCH ×2 (08:45→20:29)
[2022-11-24 08:53] LABS: African American GFR (CKD) 29 (>60 ml/min/1.73 sqM); Anion Gap 8 mmol/L; Blood Urea Nitrogen 56 mg/dL (9-20); Carbon Dioxide 28 mmol/L (22-30); Chloride 90 mmol/L (98-107); Glucose 104 mg/dL (74-99); Non-African American GFR(CKD) 25 (>60 ml/min/1.73 sqM); Potassium 3.8 mmol/L (3.5-5.1); Sodium 126 mmol/L (137-145)
[2022-11-24] MEDS ORDERED: ASPIRIN 325 MG TAB PO SCH (09:00)
[2022-11-24] MEDS: POTASSIUM CHLORIDE ER 20 MEQ TAB.ER PO SCH (10:19)
[2022-11-24] MEDS: FUROSEMIDE 10 MG/ML 4 ML VIAL IV SCH ×2 (10:19→15:43)
--- NOTE | 2022-11-24 13:36 | CA ---
Transthoracic Echo Report Name: Kelvin Burgos Age: 72 Gender: M : 1950 Exam Date: 11/24/2022 09:03 Exam Location: [facility] Ht (in): 66 Wt (lb): 150 Ordering Physician: Bernard Mora DO ([email or web address]) Attending/Referring Phys: Ad Trafficker Farrukh Reno Procedure CPT: Indications: re: LV function Cardiac Hx: Technical Quality: Fair Contrast 1: Total Dose (mL): Contrast 2: Total Dose (mL): MEASUREMENTS (Male / Female) Normal Values 2D ECHO LV Diastolic Diameter PLAX 6.6 cm 4.2 - 5.9 / 3.9 - 5.3 cm LV Systolic Diameter PLAX 6.1 cm IVS Diastolic Thickness 1.2 cm 0.6 - 1.0 / 0.6 - 0.9 cm LVPW Diastolic Thickness 1.1 cm 0.6 - 1.0 / 0.6 - 0.9 cm LV Relative Wall Thickness 0.4 RV Internal Dim ED PLAX 4.1 cm LVOT Diameter 2.5 cm Aortic Root Diameter 3.5 cm LA Systolic Diameter LX 3.6 cm 3.0 - 4.0 / 2.7 - 3.8 cm LV Diastolic Volume MOD BP 278.1 cm??? 67 - 155 / 56 - 104 cm??? LV Systolic Volume MOD BP 214.8 cm??? 22 - 58 / 19 - 49 cm??? LV Ejection Fraction MOD BP 22.8 % >= 55 % LV Cardiac Index MOD BP 2655.6 cm???/min???m??? LV Diastolic Volume MOD 4C 183.8 cm??? LV Systolic Volume MOD 4C 106.6 cm??? LV Ejection Fraction MOD 4C 42.0 % LV Cardiac Index MOD 4C 3239.4 cm???/min???m??? LV Diastolic Length 4C 7.9 cm LV Systolic Length 4C 6.8 cm LV Diastolic Volume MOD 2C 346.7 cm??? LV Systolic Volume MOD 2C 314.5 cm??? LV Ejection Fraction MOD 2C 9.3 % LV Cardiac Index MOD 2C 1352.1 cm???/min???m??? LV Diastolic Length 2C 9.6 cm LV Systolic Length 2C 9.6 cm LA Volume 70.4 cm??? 18 - 58 / 22 - 52 cm??? DOPPLER AV Peak Velocity 158.3 cm/s AV Peak Gradient 10.0 mmHg AV Mean Velocity 138.2 cm/s AV Mean Gradient 8.1 mmHg AV Velocity Time Integral 42.1 cm LVOT Peak Velocity 42.9 cm/s LVOT Peak Gradient 0.7 mmHg LVOT Velocity Time Integral 6.2 cm LVOT Stroke Volume 29.4 cm??? LVOT Stroke Volume Index 16.6 ml/m??? LVOT Cardiac Index 1233.0 cm???/min???m??? AV Area Cont Eq vti 0.7 cm??? AV Area Cont Eq pk 1.3 cm??? MV Peak Velocity 99.9 cm/s MV Peak Gradient 4.0 mmHg MV Mean Velocity 40.3 cm/s MV Mean Gradient 1.0 mmHg MV Velocity Time Integral 18.3 cm MR Peak Velocity 340.2 cm/s MR Peak Gradient 46.3 mmHg Mitral E Point Velocity 96.7 cm/s Mitral A Point Velocity 35.9 cm/s Mitral E to A Ratio 2.7 MV Deceleration Time 198.6 ms MV E' Velocity 4.0 cm/s Mitral E to MV E' Ratio 23.9 TR Peak Velocity 282.2 cm/s TR Peak Gradient 31.8 mmHg Right Ventricular Systolic Press 34.9 mmHg PV Peak Velocity 89.2 cm/s PV Peak Gradient 3.2 mmHg FINDINGS Left Ventricle Moderate to severe left ventricular dilatation. Left ventricular ejection fraction is estimated at 10-15 %. Global hypokinesis Right Ventricle Mild to moderate right ventricular dilatation. RVSP= 35 mmHg. catheter/pacemaker wire in the right ventricular cavity. Right Atrium RA Area= 20cm2. Left Atrium LA volume index= 40ml/m2 Mitral Valve Structurally normal mitral valve. Severe MR. Aortic Valve Trileaflet aortic valve. Mild aortic regurgitation. No aortic stenosis. Tricuspid Valve Structurally normal tricuspid valve. Moderate TR. Pulmonic Valve Pulmonic valve thickened with good excursion. Mild PI. Pericardium Normal pericardium. Aorta Normal size aortic root . CONCLUSIONS 1. Dilated right ventricle with severe global hypokinesis 2. Severe mitral was moderate tricuspid regurgitation 3. Mild aortic regurgitation 4. A wire is noted in the right ventricle. Previewed by: Dr. Tamia Lagos MD (Electronically Signed) Final Date: 24 November 2022 13:34
[2022-11-24] MEDS: ALPRAZolam 0.25 MG TAB PO PRN (15:43)
--- NOTE | 2022-11-24 16:10 | P.PN ---
Progress Note - Text Progress Note Date: 11/24/22 Chief Complaint: Short of breath This is a pleasant 72-year-old patient who follows with Dr. Cristiano Love. Cardiologists are [facility] sandip Ghosh. Back in 2002 patient was being considered for heart transplant. He underwent an cardiac resynchronization therapy along with a pacemaker. That turned out reviewed other effective. Patient had 3 coronary stents placed in 2002. No recent stress test. Patient was admitted to [facility] about 2 weeks ago. There for 4 days. Given IV diuretics. Lost about 8 pounds. Discharged home on different diuretics. Was stable. In the last 2 days patient started noticing decreased urine output. Also notices some chest pressure. Not feeling well. Denies any edema, any orthopnea. In the ER patient had a witnessed cardiac arrest. Apparently was in V. fib. His pacemaker went off. Patient received CPR for about 20 seconds. Had no pulse had loss consciousness. is present. Patient feels back to his normal self. Admitted with unstable angina. Episode of V. fib in the ER. Possible CHF. November 24: Breathing better. Sitting edge of the bed. Seen by cardiology. Jenks a prolonged QT interval. Possibly from sotalol. Sotalol was discontinued. Seen by Dr. REDDY Bailey from cardiology. Started on IV Lasix. Nephrology consulted. Strict I's and O's. Discussed with patient and . Active Medications Allopurinol (Allopurinol 100 Mg Tab) 100 mg PO DAILY [facility] Last Admin: 11/24/22 08:43 Dose: 100 mg Alprazolam (Alprazolam 0.25 Mg Tab) 0.25 mg PO DAILY PRN PRN Reason: Anxiety Last Admin: 11/24/22 15:43 Dose: 0.25 mg Aspirin (Aspirin 81 Mg) 81 mg PO DAILY [facility] Last Admin: 11/24/22 08:44 Dose: 81 mg Atorvastatin Calcium (Atorvastatin 40 Mg Tab) 40 mg PO HS [facility] Last Admin: 11/23/22 20:41 Dose: 40 mg Carvedilol (Carvedilol 12.5 Mg Tab) 12.5 mg PO BID-W/MEALS [facility] Last Admin: 11/24/22 06:21 Dose: 12.5 mg Colchicine (Colchicine 0.6 Mg Each) 0.6 mg PO BID [facility] Last Admin: 11/24/22 08:45 Dose: 0.6 mg Famotidine (Famotidine 20 Mg Tab) 20 mg PO DAILY [facility] Furosemide (Furosemide 10 Mg/Ml 4 Ml Vial) 40 mg IV Q8HR [facility] Last Admin: 11/24/22 15:43 Dose: 40 mg Levetiracetam (Levetiracetam 500 Mg Tab) 500 mg PO QAM [facility] Last Admin: 11/24/22 08:43 Dose: 500 mg Levetiracetam (Levetiracetam 500 Mg Tab) 1,000 mg PO HS [facility] Last Admin: 11/23/22 20:41 Dose: 1,000 mg Miscellaneous Information (Warfarin Per Pharmacy) 0 each MISCELLANE DIRECTED PRN PRN Reason: PHARMACY DOSING WARFARIN Nitroglycerin (Nitroglycerin Sl Tabs 0.4 Mg Tab) 0.4 mg SUBLINGUAL Q5M PRN PRN Reason: Chest Pain Potassium Chloride (Potassium Chloride Er 20 Meq Tab.Er) 20 meq PO DAILY [facility] Last Admin: 11/24/22 10:19 Dose: 20 meq Warfarin Sodium (Warfarin 2.5 Mg Tab) 2.5 mg PO SUTUWETHSA@1800 QAMAR; Protocol Last Admin: 11/23/22 18:11 Dose: 2.5 mg Warfarin Sodium (Warfarin 5 Mg Tab) 5 mg PO MOFR@1800 QAMAR; Protocol Social history: Smoked a pack a day for 35 years stopped in 2002. No alcohol now. 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 . Physical examination: VITAL SIGNS: 98.4, 75, 16, 91/82, 96% room air GENERAL: Sitting at the edge of the bed, eating lunch. Left-sided pacemaker/AICD EYES: Pupils equal. Conjunctiva normal. HEENT: External appearance of nose and ears normal, oral cavity grossly normal. NECK: JVD not raised; masses not palpable. HEART: First and second heart sounds are normal; no edema. LUNGS: Respiratory rate normal; decreased breath sounds. ABDOMEN: Soft, nontender, liver spleen not palpable, no masses palpable. PSYCH: Alert and oriented x3; mood and affect normal. MUSCULOSKELETAL:No Clubbing/cyanosis;muscles-grossly intact. OA INVESTIGATIONS, reviewed in the clinical context: 2-D echocardiogram: EF 10-15%. Global hypokinesis. Severe mitral regurgitation. Moderate TR. November 24: INR 2.8. Sodium 126. Potassium 3.8. BUN 56 creatinine. Creatinine 2.47 White count 10 hemoglobin 16.2 platelets 128 INR 2.6 sodium 129 potassium 4.5 BUN 38 creatinine 2.01 AST 89 ALT 149 Troponin I 0.086, 0.071 ProBNP 38771 TSH 1.8 Influenza type A, B, RSV, COVID-19: Not detected EKG tracing personally reviewed by me-biventricular paced Chest x-ray film personally reviewed by me-cardiomegaly. Pacemaker. Some hyperinflation Assessment and plan: -Episode of ventricular fibrillation with a short cardiac arrest in the ER. Jenks to be secondary to prolonged QT interval from sotalol. Witnessed. AICD went off. Downtime less than a minute. Sotalol discontinued. -CAD with 3 stents in 2002 -Seizure disorder Keppra -Gout patient on allopurinol and colchicine -GERD Pepcid -Acute on Chronic congestive heart failure from ischemic cardiomyopathy. EF 10- 15%. Followed by cardiology Dr. REDDY Bailey. Started on IV Lasix 40 mg every 8. -Cardial renal syndrome. Baseline creatinine not known. We will request colostomy was to [place]. Renal ultrasound. Strict I's and O's. Patient UA is 2+ protein.: Worsening Admission creatinine 2.01. Cardiology consulted. -Persistent atrial fibrillation Pacemaker. Coumadin. -AICD/pacemaker with cardiac synchronization. -Hyponatremia, likely from volume contraction secondary to Lasix.: Worsening Follow closely Started on IV Lasix. Nephrology consulted. Strict I's and O's. Follow labs closely. Past Medical History Past Medical History: Atrial Fibrillation, Heart Failure, CVA/TIA, GERD/Reflux, Hyperlipidemia, Hypertension, Myocardial Infarction (CT), Seizure Disorder Additional Past Medical History / Comment(s): CT x3, CVA 10-12 yrs. ago-started keppra after, last seizure >10 yrs. ago, has had colon polyp that keeps coming back Last Myocardial Infarction Date:: August 2002 History of Any Multi-Drug Resistant Organisms: None Reported Past Surgical History: AICD, Heart Catheterization With Stent, Orthopedic Surgery Additional Past Surgical History / Comment(s): colonoscopies, cristel. shoulder surg. as a teen, BILAT CATARACTS REMOVED WITH LENS IMPLANTS Past Anesthesia/Blood Transfusion Reactions: No Reported Reaction Date of Last Stent Placement:: 2002 Type of Cardiac Device: Permanent Pacemaker, AICD Device Placement Date:: Swip[place]-replaced in 2019 Past Psychological History: Anxiety Smoking Status: Former smoker Past Alcohol Use History: None Reported Past Drug Use History: None Reported - Past Family History Mother Family Medical History: No Reported History Medications and Allergies Home Medications Medication Instructions Recorded Confirmed Type Aspirin 81 mg PO DAILY 10/22/20 11/23/22 History Atorvastatin [Lipitor] 40 mg PO HS 10/22/20 11/23/22 History Famotidine [Pepcid] 40 mg PO BID 10/22/20 11/23/22 History Nitroglycerin Sl Tabs [Nitrostat] 0.4 mg SL Q5M PRN 10/22/20 11/23/22 History Spironolactone [Aldactone] 25 mg PO DAILY 10/22/20 11/23/22 History Warfarin [Coumadin] 5 mg PO MOFR@1800 10/22/20 11/23/22 History levETIRAcetam [Keppra] 500 mg PO DAILY 10/22/20 11/23/22 History ALPRAZolam [Xanax] 0.25 mg PO DAILY PRN 11/23/22 11/23/22 History Colchicine 0.6 mg PO BID 11/23/22 11/23/22 History Sotalol [Betapace] 120 mg PO DAILY 11/23/22 11/23/22 History Torsemide [Demadex] 100 mg PO DAILY 11/23/22 11/23/22 History Torsemide [Demadex] 100 mg PO DAILY PRN 11/23/22 11/23/22 History Warfarin [Coumadin] 2.5 mg PO SUTUWETHSA@1800 11/23/22 11/23/22 History allopurinoL 100 mg PO DAILY 11/23/22 11/23/22 History carvediloL [Coreg] 12.5 mg PO BID 11/23/22 11/23/22 History levETIRAcetam [Keppra] 1,000 mg PO HS 11/23/22 11/23/22 History lisinopriL [Zestril] 5 mg PO HS 11/23/22 11/23/22 History predniSONE See Taper PO DIRECTED 11/23/22 11/23/22 History Allergies Allergy/AdvReac Type Severity Reaction Status Date / Time No Known Allergies Allergy Verified 11/23/22 13:28
--- NOTE | 2022-11-24 17:44 | P.NPCON ---
History of Present Illness - Reason for Consult acute renal failure - History of Present Illness Patient is a 72 yr. old male with h/o CHF , CAD, A fib, CVA who presents with c/o shortness of brreath and increased weight gain. S/p brief cardiac arrest in ER, less than 1 minute. Has implanted defibrillator which fired. Currently being diuresed. Maintained on IV lasix q 8 hrs. Feeling much better with improved leg edema and SOB. Patient has indwelling garcia cathetr. ? Retention. Creatinine increased from 2.0 to 2.4 today. Sodium dropped from 129 to 126 today. BP has been low in the 80s and occasional 70s as well. Patient states that he was informed of weak kidney function at [facility] during recent hospitalization 2 weeks ago but has not seen a recruiter manager. No previous labs available for comparison. Review of Systems as per HPI Past Medical History Past Medical History: Atrial Fibrillation, Heart Failure, CVA/TIA, GERD/Reflux, Hyperlipidemia, Hypertension, Myocardial Infarction (CA), Seizure Disorder Additional Past Medical History / Comment(s): CA x3, CVA 10-12 yrs. ago-started keppra after, last seizure >10 yrs. ago, has had colon polyp that keeps coming back Last Myocardial Infarction Date:: August 2002 History of Any Multi-Drug Resistant Organisms: None Reported Past Surgical History: AICD, Heart Catheterization With Stent, Orthopedic Surgery Additional Past Surgical History / Comment(s): colonoscopies, cristel. shoulder surg. as a teen, BILAT CATARACTS REMOVED WITH LENS IMPLANTS Past Anesthesia/Blood Transfusion Reactions: No Reported Reaction Date of Last Stent Placement:: 2002 Type of Cardiac Device: Permanent Pacemaker, AICD Device Placement Date:: [employer]-replaced in 2019 Past Psychological History: Anxiety Smoking Status: Former smoker Past Alcohol Use History: None Reported Past Drug Use History: None Reported - Past Family History Mother Family Medical History: No Reported History Medications and Allergies Home Medications Medication Instructions Recorded Confirmed Type Aspirin 81 mg PO DAILY 10/22/20 11/23/22 History Atorvastatin [Lipitor] 40 mg PO HS 10/22/20 11/23/22 History Famotidine [Pepcid] 40 mg PO BID 10/22/20 11/23/22 History Nitroglycerin Sl Tabs [Nitrostat] 0.4 mg SL Q5M PRN 10/22/20 11/23/22 History Spironolactone [Aldactone] 25 mg PO DAILY 10/22/20 11/23/22 History Warfarin [Coumadin] 5 mg PO MOFR@1800 10/22/20 11/23/22 History levETIRAcetam [Keppra] 500 mg PO DAILY 10/22/20 11/23/22 History ALPRAZolam [Xanax] 0.25 mg PO DAILY PRN 11/23/22 11/23/22 History Colchicine 0.6 mg PO BID 11/23/22 11/23/22 History Sotalol [Betapace] 120 mg PO DAILY 11/23/22 11/23/22 History Torsemide [Demadex] 100 mg PO DAILY 11/23/22 11/23/22 History Torsemide [Demadex] 100 mg PO DAILY PRN 11/23/22 11/23/22 History Warfarin [Coumadin] 2.5 mg PO SUTUWETHSA@1800 11/23/22 11/23/22 History allopurinoL 100 mg PO DAILY 11/23/22 11/23/22 History carvediloL [Coreg] 12.5 mg PO BID 11/23/22 11/23/22 History levETIRAcetam [Keppra] 1,000 mg PO HS 11/23/22 11/23/22 History lisinopriL [Zestril] 5 mg PO HS 11/23/22 11/23/22 History predniSONE See Taper PO DIRECTED 11/23/22 11/23/22 History Allergies Allergy/AdvReac Type Severity Reaction Status Date / Time No Known Allergies Allergy Verified 11/23/22 13:28 Physical Exam Vitals: Vital Signs Temp Pulse Resp BP Pulse Ox 11/24/22 16:00 97.3 F L 85 16 99/65 96 11/24/22 12:00 98.4 F 75 16 91/82 96 11/24/22 08:46 97 11/24/22 08:00 97.4 F L 82 16 101/68 98 11/24/22 03:44 97.4 F L 82 18 103/66 98 11/23/22 23:27 98.1 F 85 18 96/70 98 11/23/22 20:00 98.3 F 75 18 93/54 95 11/23/22 19:08 98.1 F 75 17 108/62 100 Intake and Output 11/24/22 11/24/22 11/24/22 06:59 14:59 22:59 Intake Total 600 Output Total 400 800 Balance -400 -200 Intake: Oral 600 Output: Urine 400 800 Other: Voiding Method Indwelling Catheter Indwelling Catheter # Bowel Movements 1 Awake comfortable Alert and oriented x3 Lungs are clear CVS S1 and S2 Abdomen is soft, nontender. Extremities show no edema. Results - Lab Results Most recent lab results Calcium 8.0 mg/dL (8.4-10.2) L 11/24/22 07:29 Magnesium 2.2 mg/dL (1.6-2.3) 11/23/22 09:28 11/23/22 09:28 11/24/22 07:29 Assessment and Plan Assessment: 1. Acute kidney injury, ischemic ATN from low BP and cardiorenal syndrome. Currently non oliguric. U/A shows 2+ protein, no blood. USS shows no obstruction. S/p diuresis with improved volume status. 2. Chronic kidney disease, most likely stage 3, baseline cr. not available. U/A shows 2+ proteinuriawhich needs w/u. No h/o DM. 3. Volume overload, improved. 4. Hypotension from poor cardiac output. 5. Cadiomyopathy , EF 10-15% 6. S/p cardiac arrest, V fib, s/p firing from defibrillator 7. Hyponatremia with CHF, s/p recent diuresis. Plan: Decrease lasix. Check cortisol level Samsca x1 Add midodrine Repeat labs in am Maintain salt restriction. Patient will need outpatient f/u for CKD. Thank you for the consultation. We will continue to follow the patient with you.
--- NOTE | 2022-11-24 17:45 | CT ---
EXAMINATION TYPE: CT brain wo con CT DLP: 1112.4 mGycm, Automated exposure control for dose reduction was used. DATE OF EXAM: 11/24/2022 5:37 PM COMPARISON: None. CLINICAL INDICATION:Male, 72 years old with history of ALTERED MENTAL STATUS, AMS. hx of stroke TECHNIQUE: Brain: Axial CT images of the brain were obtained with coronal and sagittal reformats created and rev iewed. Contrast used: None. Oral contrast used: None. FINDINGS: Brain: Extra-axial spaces: No abnormal extra-axial fluid collections. Ventricular system: Within normal limits Cerebral parenchyma: Remote appearing left parietal region/temporal region injury No acute intraparen chymal hemorrhage or mass effect. The saldana-white junction is well differentiated. Cerebellum: Unremarkable. Mass effect: No evidence of midline shift. Intracranial vasculature: Atherosclerotic calcifications of the intracranial vessels. Soft tissues: Normal. Calvarium/osseous structures: No depressed skull fracture. Paranasal sinuses and mastoid air cells: Mild scattered paranasal sinus disease. Visualized orbits: Bilaterally aphakia IMPRESSION: Remote left parietal/temporal injury. No evidence for acute/subacute CVA.
[2022-11-24] MEDS: MIDODRINE 5 MG TAB PO SCH (17:58)
[2022-11-24] MEDS ORDERED: WARFARIN 5 MG TAB PO SCH (18:00)
[2022-11-24 18:07] LABS: African American GFR (CKD) 31 (>60 ml/min/1.73 sqM); Anion Gap 9 mmol/L; Blood Urea Nitrogen 58 mg/dL (9-20); Calcium 7.8 mg/dL (8.4-10.2); Carbon Dioxide 26 mmol/L (22-30); Chloride 92 mmol/L (98-107); Glucose 140 mg/dL (74-99); Non-African American GFR(CKD) 27 (>60 ml/min/1.73 sqM); Potassium 3.7 mmol/L (3.5-5.1); Sodium 127 mmol/L (137-145)
[2022-11-24 18:13] LABS: Chol/HDL Ratio 2.62 Ratio; LDL Cholesterol,Calculated 34.8 mg/dL (0.0-131.0)
[2022-11-24] MEDS: ATORVASTATIN 40 MG TAB PO SCH (20:29)
--- NOTE | 2022-11-25 06:02 | PN ---
PROGRESS NOTE This is a 72-year-old gentleman with history of severe ischemic cardiomyopathy under the care of Dr. Augie Estrada at [facility], came into the hospital, had a shock with AICD for what appears to be a ventricular tachycardia, prolonged QT, was seen by Dr. Mora. Sotalol was discontinued. He feels better. Has not had any further arrhythmia. He is in congestive heart failure, but seems to be reasonably compensated. His BNP is quite high. I am recommending that we give Lasix 40 mg q.8 hours IV push. He has fine rales over both bases and JVD is evident. Heart exam reveals S1, S2 with a short systolic murmur. I will check a BNP, magnesium tomorrow and also give him potassium 20 mEq. Continue his other medications. No further arrhythmia, is resting comfortably. Echo reveals ejection fraction of 20%to 25%. Enlargement of left ventricle is noted. The patient has ICD. If he has no further arrhythmia and if he is comfortable and his electrolytes are acceptable, he can be discharged and follow up at [facility]. He has chronic kidney disease as well, but creatinine has gone up. There may be an acute injury component as well. Prognosis remains guarded. MMODL / IJN: [id number] /
[2022-11-25] MEDS: MIDODRINE 5 MG TAB PO SCH ×2 (06:52→17:19)
[2022-11-25] MEDS: carvediloL 6.25 MG TAB PO SCH ×2 (06:52→17:19)
[2022-11-25] MEDS ORDERED: FAMOTIDINE 20 MG TAB PO SCH (09:00)
[2022-11-25] MEDS ORDERED: FUROSEMIDE 10 MG/ML 4 ML VIAL IV SCH (09:00)
[2022-11-25 09:15] LABS: INR 3.3 (<1.2); Prothrombin Time 32.5 sec (9.0-12.0)
[2022-11-25] MEDS ORDERED: SPIRONOLACTONE 25 MG TAB PO SCH (09:15)
[2022-11-25] MEDS ORDERED: TORSEMIDE 20 MG TAB PO SCH (09:15)
[2022-11-25] MEDS ORDERED: FUROSEMIDE 10 MG/ML 4 ML VIAL IV STA (09:19)
[2022-11-25] MEDS: COLCHICINE 0.6 MG EACH PO SCH ×2 (09:32→22:34)
[2022-11-25] MEDS: levETIRAcetam 500 MG TAB PO SCH ×2 (09:32→22:34)
[2022-11-25] MEDS: allopurinoL 100 MG TAB PO SCH (09:32)
[2022-11-25] MEDS: ASPIRIN 81 MG PO SCH (09:32)
[2022-11-25] MEDS: POTASSIUM CHLORIDE ER 20 MEQ TAB.ER PO SCH (09:32)
[2022-11-25 09:40] LABS: African American GFR (CKD) 40 (>60 ml/min/1.73 sqM); Anion Gap 11 mmol/L; Blood Urea Nitrogen 59 mg/dL (9-20); Calcium 7.6 mg/dL (8.4-10.2); Carbon Dioxide 20 mmol/L (22-30); Chloride 95 mmol/L (98-107); Glucose 91 mg/dL (74-99); Non-African American GFR(CKD) 35 (>60 ml/min/1.73 sqM); Potassium 3.5 mmol/L (3.5-5.1); Sodium 126 mmol/L (137-145)
[2022-11-25 10:05] LABS: NT-Pro-B-Type Natriuretic Pept 31900 pg/mL
[2022-11-25] MEDS ORDERED: TOLVAPTAN 15 MG TABLET PO ONE (11:00)
--- NOTE | 2022-11-25 11:20 | P.PN ---
Subjective Patient is seen for follow-up for acute kidney injury. He has been diuresed for volume overload and CHF exacerbation. Underlying severe cardiomyopathy with EF of 10-15%. Diuretics have been decreased. Serum sodium is at 126 and creatinine decreased to 1.89 from 2.3 yesterday. Switched to oral diuretics. Torsemide that patient was taking at home prior to admission. Objective - Vital Signs Vital signs: Vital Signs Temp 98.6 F 11/25/22 08:00 Pulse 77 11/25/22 08:00 Resp 18 11/25/22 08:00 BP 90/59 11/25/22 08:00 Pulse Ox 98 11/25/22 08:00 FiO2 Intake & Output 11/24/22 11/25/22 11/25/22 18:59 06:59 18:59 Intake Total 718 180 Output Total 800 750 Balance -82 -750 180 Weight 67.3 kg Intake: Oral 718 180 Output: Urine 800 750 Other: Voiding Method Indwelling Catheter Indwelling Catheter # Voids 1 # Bowel Movements 1 - Exam Patient is awake, comfortable, no acute distress Examination of the heart S1 and S2 Examination of the lungs bilateral breath sounds are heard Abdomen is soft nontender Examination of lower extremity shows no evidence of edema DIRECTOR MERIT SYSTEM exam grossly intact - Labs CBC & Chem 7: 11/23/22 09:28 11/25/22 08:26 Labs: Abnormal Lab Results - Last 24 Hours (Table) 11/24/22 11/24/22 11/25/22 Range/Units 07:29 16:58 08:26 PT 32.5 H (9.0-12.0) sec INR 3.3 H (<1.2) Sodium 127 L (137-145) mmol/L Chloride 92 L (98-107) mmol/L Carbon Dioxide (22-30) mmol/L BUN 58 H (9-20) mg/dL Creatinine 2.32 H (0.66-1.25) mg/dL Glucose 140 H (74-99) mg/dL Calcium 7.8 L (8.4-10.2) mg/dL HDL Cholesterol 37.40 L (40.00-60.00) mg/dL 11/25/22 Range/Units 08:26 PT (9.0-12.0) sec INR (<1.2) Sodium 126 L (137-145) mmol/L Chloride 95 L (98-107) mmol/L Carbon Dioxide 20 L (22-30) mmol/L BUN 59 H (9-20) mg/dL Creatinine 1.89 H (0.66-1.25) mg/dL Glucose (74-99) mg/dL Calcium 7.6 L (8.4-10.2) mg/dL HDL Cholesterol (40.00-60.00) mg/dL Assessment and Plan Assessment: 1. Acute kidney injury, ischemic ATN from low BP and cardiorenal syndrome. Currently non oliguric. U/A shows 2+ protein, no blood. USS shows no obstruction. S/p diuresis with improved volume status. 2. Chronic kidney disease, most likely stage 3, baseline cr. not available. U/A shows 2+ proteinuria which needs w/u. No h/o DM. 3. Volume overload, improved. 4. Hypotension from poor cardiac output. 5. Cadiomyopathy , EF 10-15% 6. S/p cardiac arrest, V fib, s/p firing from defibrillator 7. Hyponatremia with CHF, s/p recent diuresis. Plan: Extremities switching to oral diuretics Cortisol level is not low Samsca x1 Continue midodrine Repeat labs in am Maintain salt restriction. Patient will need outpatient f/u for CKD. T
--- NOTE | 2022-11-25 14:31 | P.CNNES ---
History of Present Illness Consult date: 11/25/22 Requesting physician: Deepak Morelos Reason for Consult: aphasia History of Present Illness: This is a 72-year-old with history of stroke with residual aphasia, coronary artery disease status post stent, myocardial, ischemic cardiomyopathy status post AICD, atrial fibrillation on Coumadin, V. tach who presents because of dyspnea, fatigue. Neurology team is consulted for aphasia. Some of the history is obtained from medical record. In our ED on 11/23/2022, Apparently he was in V. fib. His pacemaker were off. His pacemaker were off. It seems that the patient received CPR for about 20 seconds no pulse and any loss of consciousness. Was felt secondary due to prolonged QT interval from Sortalol. Seems that on 11/24/2022 patient had the episode of altered mental status with concern for aphasia so he had a CT of the head that. I spoke with patient nurse and she stated his aphasia is old from his previous stroke and nothing is worse or new. I spoke with patient and he did acknowledge he had old stroke with residual aphasia and it did not get worse recently and denies of any new neurological issues. He denies of any headache. He has old ptosis of left eye. Some of the workup during this hospital visit consisted of: Most recent sodium is 126. Glucose is 91. Calcium is 7.6. Troponins 0.071 in the repeat his 0.109. TSH is 1.830. CT of the head is reported as remote left parietal temporal injury. No evidence for acute/subacute CVA. I personally reviewed the CT and I feel it's more left parietal/posterior temporal region that is old septal malacia Most recent INR is 3.3 yesterday yesterday was 2.8. Review of Systems 10 point system was reviewed and positive and negative as per HPI Past Medical History Past Medical History: Atrial Fibrillation, Heart Failure, CVA/TIA, GERD/Reflux, Hyperlipidemia, Hypertension, Myocardial Infarction ([place]), Seizure Disorder Additional Past Medical History / Comment(s): [place] x3, CVA 10-12 yrs. ago-started keppra after, last seizure >10 yrs. ago, has had colon polyp that keeps coming back Last Myocardial Infarction Date:: August 2002 History of Any Multi-Drug Resistant Organisms: None Reported Past Surgical History: AICD, Heart Catheterization With Stent, Orthopedic Surgery Additional Past Surgical History / Comment(s): colonoscopies, cristel. shoulder surg. as a teen, BILAT CATARACTS REMOVED WITH LENS IMPLANTS Past Anesthesia/Blood Transfusion Reactions: No Reported Reaction Date of Last Stent Placement:: 2002 Type of Cardiac Device: Permanent Pacemaker, AICD Device Placement Date:: [employer]-replaced in 2019 Past Psychological History: Anxiety Smoking Status: Former smoker Past Alcohol Use History: None Reported Past Drug Use History: None Reported - Past Family History Mother Family Medical History: No Reported History Medications and Allergies Home Medications Medication Instructions Recorded Confirmed Type Aspirin 81 mg PO DAILY 10/22/20 11/23/22 History Atorvastatin [Lipitor] 40 mg PO HS 10/22/20 11/23/22 History Famotidine [Pepcid] 40 mg PO BID 10/22/20 11/23/22 History Nitroglycerin Sl Tabs [Nitrostat] 0.4 mg SL Q5M PRN 10/22/20 11/23/22 History Spironolactone [Aldactone] 25 mg PO DAILY 10/22/20 11/23/22 History Warfarin [Coumadin] 5 mg PO MOFR@1800 10/22/20 11/23/22 History levETIRAcetam [Keppra] 500 mg PO DAILY 10/22/20 11/23/22 History ALPRAZolam [Xanax] 0.25 mg PO DAILY PRN 11/23/22 11/23/22 History Colchicine 0.6 mg PO BID 11/23/22 11/23/22 History Sotalol [Betapace] 120 mg PO DAILY 11/23/22 11/23/22 History Torsemide [Demadex] 100 mg PO DAILY 11/23/22 11/23/22 History Torsemide [Demadex] 100 mg PO DAILY PRN 11/23/22 11/23/22 History Warfarin [Coumadin] 2.5 mg PO SUTUWETHSA@1800 11/23/22 11/23/22 History allopurinoL 100 mg PO DAILY 11/23/22 11/23/22 History carvediloL [Coreg] 12.5 mg PO BID 11/23/22 11/23/22 History levETIRAcetam [Keppra] 1,000 mg PO HS 11/23/22 11/23/22 History lisinopriL [Zestril] 5 mg PO HS 11/23/22 11/23/22 History predniSONE See Taper PO DIRECTED 11/23/22 11/23/22 History Allergies Allergy/AdvReac Type Severity Reaction Status Date / Time No Known Allergies Allergy Verified 11/23/22 13:28 Physical Examination - Vital Signs Vital Signs: Vital Signs Temp Pulse Resp BP Pulse Ox 11/25/22 08:00 98.6 F 77 18 90/59 98 11/25/22 04:00 98.2 F 84 18 97/62 95 11/25/22 01:49 83 18 11/24/22 23:08 98.0 F 83 18 98/67 99 11/24/22 20:00 98.2 F 85 18 99/66 96 11/24/22 16:00 97.3 F L 85 16 99/65 96 Intake and Output 11/24/22 11/25/22 11/25/22 22:59 06:59 14:59 Intake Total 118 180 Output Total 300 450 400 Balance -182 -450 -220 Intake: Oral 118 180 Output: Urine 300 450 400 Other: Voiding Method Indwelling Catheter Indwelling Catheter # Voids 1 # Bowel Movements 1 Weight 67.3 kg GENERAL: The patient is lying in bed and is not in acute distress. NEUROLOGICAL: Higher mental function: The patient is awake, alert, oriented to self, place and time. Patient is following commands. Positive aphasia and seems expressive. Cranial nerves: The pupils are round, equal and reactive to light. Has ptosis over the left eye (old). Visual cali are full to confrontation throughout. Extraocular movement is hard to assess because of his cooperation. Facial sensation is normal to touch throughout. The facial strength is normal throughout. Hearing is moderately decreased bilaterally to hand rub. Tongue is midline and moved [id number] without any difficulty. No dysarthria is noted. Shoulder shrug is normal bilaterally. Motor: The strength is 5 over 5 throughout. Normal tone and bulk. Cerebellum: Normal finger to nose bilaterally. Sensation: Sensation is normal to touch throughout. Reflexes (right/left): 1+ Plantars are downgoing bilaterally. Results - Laboratory Findings CBC and BMP: 11/23/22 09:11/25/22 08:26 Abnormal Lab Findings: Abnormal Labs 11/23/22 11/23/22 11/23/22 09:28 09:28 09:28 Plt Count 128 L Neutrophils # 9.1 H Lymphocytes # 0.3 L PT 25.6 H INR 2.6 H APTT 31.7 H Sodium 129 L Chloride 90 L Carbon Dioxide BUN 38 H Creatinine 2.01 H Glucose 116 H Calcium Total Bilirubin 1.4 H AST 89 H ALT 149 H Troponin I HDL Cholesterol Urine Protein Urine Bacteria Hyaline Casts Urine Mucus 11/23/22 11/23/22 11/23/22 09:28 09:28 13:12 Plt Count Neutrophils # Lymphocytes # PT INR APTT Sodium Chloride Carbon Dioxide BUN Creatinine Glucose Calcium Total Bilirubin AST ALT Troponin I 0.086 H* 0.071 H* HDL Cholesterol Urine Protein 2+ H Urine Bacteria Rare H Hyaline Casts 30 H Urine Mucus Rare H 11/23/22 11/24/22 11/24/22 16:03 07:29 07:29 Plt Count Neutrophils # Lymphocytes # PT 26.9 H INR 2.8 H APTT Sodium 126 L Chloride 90 L Carbon Dioxide BUN 56 H Creatinine 2.47 H Glucose 104 H Calcium 8.0 L Total Bilirubin AST ALT Troponin I 0.109 H* HDL Cholesterol 37.40 L Urine Protein Urine Bacteria Hyaline Casts Urine Mucus 11/24/22 11/25/22 11/25/22 16:58 08:26 08:26 Plt Count Neutrophils # Lymphocytes # PT 32.5 H INR 3.3 H APTT Sodium 127 L 126 L Chloride 92 L 95 L Carbon Dioxide 20 L BUN 58 H 59 H Creatinine 2.32 H 1.89 H Glucose 140 H Calcium 7.8 L 7.6 L Total Bilirubin AST ALT Troponin I HDL Cholesterol Urine Protein Urine Bacteria Hyaline Casts Urine Mucus Assessment and Plan Assessment: This is is a 72-year-old gentleman with multiple cardiac issues who presents to our facility because of dyspnea and worsening of fatigue. In our ED patient cardiac arrest lasting for about 22nd with loss of pulse, consciousness and was felt due to prolonged QT interval from Sortalol. Neurology is consulted for ?aphasia. But per the patient is old and per nurse no change in his aphasia and is old. Cardiac arrest lasting for 20 seconds was felt due to prolonged QT interval from Sortalol. Hyponatremia that is mild to moderate. The most recent one is 126. Possibly due to medication use patient is on Lasix. History of old stroke (left paritotemporal region) with residual aphasia History of seizure and patient is on Keppra History of coronary artery disease status post stent History of myocardial, ischemic cardiomyopathy status post AICD Atrial fibrillation on Coumadin History of V. tach Plan: Patient is on Coumadin as well as aspirin 81 mg daily. The patient is also on Lipitor 40 mg daily at bedtime. Patient stated his aphasia is old as well his nurse stated that is old from prior stroke. I spoke with PCP and stated the nurse felt he had aphasia yesterday that is why he consulted but they did not know his baseline. Cardiology team is consulted. 2D echo: It is reported as dilated right ventricle with severe global hypokinesis. Severe mitral with moderate tricuspid regurgitation. Mild aortic regurgitation. A wire is noted in the right ventricle. We'll defer the rest of the medical management to primary and other specialists. Update: I spoke with his via phone and she stated his speech is worse in past couple weeks. She'll acknowledged the patient has ptosis on the left eye as well as has expressive aphasia that old. Since the patient had symptoms for couple weeks and expect to see new changes on the CT of the head. I will get a carotid duplex. Cannot obtain MRI the brain since the patient has AICD which is not compatible with MRI. Thank you for the consultation Time with Patient: Greater than 30
--- NOTE | 2022-11-25 16:27 | P.PN ---
Progress Note - Text Progress Note Date: 11/25/22 Chief Complaint: Short of breath This is a pleasant 72-year-old patient who follows with Dr. Cristiano Love. Cardiologists are [facility] sandip Ghosh. Back in 2002 patient was being considered for heart transplant. He underwent an cardiac resynchronization therapy along with a pacemaker. That turned out reviewed other effective. Patient had 3 coronary stents placed in 2002. No recent stress test. Patient was admitted to [facility] about 2 weeks ago. There for 4 days. Given IV diuretics. Lost about 8 pounds. Discharged home on different diuretics. Was stable. In the last 2 days patient started noticing decreased urine output. Also notices some chest pressure. Not feeling well. Denies any edema, any orthopnea. In the ER patient had a witnessed cardiac arrest. Apparently was in V. fib. His pacemaker went off. Patient received CPR for about 20 seconds. Had no pulse had loss consciousness. is present. Patient feels back to his normal self. Admitted with unstable angina. Episode of V. fib in the ER. Possible CHF. November 24: Breathing better. Sitting edge of the bed. Seen by cardiology. [place] a prolonged QT interval. Possibly from sotalol. Sotalol was discontinued. Seen by Dr. REDDY Bailey from cardiology. Started on IV Lasix. Nephrology consulted. Strict I's and O's. Discussed with patient and . November 25: Laying in bed. Comfortable. 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 Seen by nephrology. 1 dose of Samsca given. Sodium low at 126. Late afternoon yesterday nurse at called me that patient was speech was slightly off. Questionable dry mouth. Concern of new event. Head CT scan and neurology consult was done. Patient feels well this morning. Active Medications Allopurinol (Allopurinol 100 Mg Tab) 100 mg PO DAILY [facility] Last Admin: 11/25/22 09:32 Dose: 100 mg Alprazolam (Alprazolam 0.25 Mg Tab) 0.25 mg PO DAILY PRN PRN Reason: Anxiety Last Admin: 11/24/22 15:43 Dose: 0.25 mg Aspirin (Aspirin 81 Mg) 81 mg PO DAILY [facility] Last Admin: 11/25/22 09:32 Dose: 81 mg Atorvastatin Calcium (Atorvastatin 40 Mg Tab) 40 mg PO HS [facility] Last Admin: 11/24/22 20:29 Dose: 40 mg Carvedilol (Carvedilol 6.25 Mg Tab) 6.25 mg PO BID-W/MEALS [facility] Last Admin: 11/25/22 06:52 Dose: 6.25 mg Colchicine (Colchicine 0.6 Mg Each) 0.6 mg PO BID [facility] Last Admin: 11/25/22 09:32 Dose: 0.6 mg Famotidine (Famotidine 20 Mg Tab) 20 mg PO DAILY [facility] Last Admin: 11/25/22 09:32 Dose: 20 mg Levetiracetam (Levetiracetam 500 Mg Tab) 500 mg PO QAM [facility] Last Admin: 11/25/22 09:32 Dose: 500 mg Levetiracetam (Levetiracetam 500 Mg Tab) 1,000 mg PO HS [facility] Last Admin: 11/24/22 20:29 Dose: 1,000 mg Midodrine (Midodrine 5 Mg Tab) 5 mg PO AC-BID [facility] Last Admin: 11/25/22 06:52 Dose: 5 mg Miscellaneous Information (Warfarin Per Pharmacy) 0 each MISCELLANE DIRECTED PRN PRN Reason: PHARMACY DOSING WARFARIN Nitroglycerin (Nitroglycerin Sl Tabs 0.4 Mg Tab) 0.4 mg SUBLINGUAL Q5M PRN PRN Reason: Chest Pain Potassium Chloride (Potassium Chloride Er 20 Meq Tab.Er) 20 meq PO DAILY [facility] Last Admin: 11/25/22 09:32 Dose: 20 meq Spironolactone (Spironolactone 25 Mg Tab) 25 mg PO DAILY [facility] Last Admin: 11/25/22 09:18 Dose: Not Given Torsemide (Torsemide 20 Mg Tab) 100 mg PO DAILY [facility] Last Admin: 11/25/22 09:19 Dose: Not Given Warfarin Sodium (Warfarin 0.5 Mg Tab) 0 mg PO ONCE ONE Stop: 11/25/22 18:01 Social history: Smoked a pack a day for 35 years stopped in 2002. No alcohol now. 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 . Physical examination: VITAL SIGNS: 98.2, 76, 16, 99 x 62, 96% room air GENERAL: Laying in bed, comfortable Left-sided pacemaker/AICD EYES: Pupils equal. Conjunctiva normal. HEENT: External appearance of nose and ears normal, oral cavity grossly normal. NECK: JVD not raised; masses not palpable. HEART: First and second heart sounds are normal; no edema. LUNGS: Respiratory rate normal; decreased breath sounds. ABDOMEN: Soft, nontender, liver spleen not palpable, no masses palpable. PSYCH: Alert and oriented x3; mood and affect normal. MUSCULOSKELETAL:No Clubbing/cyanosis;muscles-grossly intact. OA INVESTIGATIONS, reviewed in the clinical context: November 25: INR 3.3 sodium 126 potassium 3.5 BUN 59 creatinine 1.89 2-D echocardiogram: EF 10-15%. Global hypokinesis. Severe mitral regurgitation. Moderate TR. November 24: INR 2.8. Sodium 126. Potassium 3.8. BUN 56 creatinine. Creatinine 2.47 White count 10 hemoglobin 16.2 platelets 128 INR 2.6 sodium 129 potassium 4.5 BUN 38 creatinine 2.01 AST 89 ALT 149 Troponin I 0.086, 0.071 ProBNP 74052 TSH 1.8 Influenza type A, B, RSV, COVID-19: Not detected EKG tracing personally reviewed by me-biventricular paced Chest x-ray film personally reviewed by me-cardiomegaly. Pacemaker. Some hyperinflation Assessment and plan: -Episode of ventricular fibrillation with a short cardiac arrest in the ER. [place] to be secondary to prolonged QT interval from sotalol. Witnessed. AICD went off. Downtime less than a minute. Sotalol discontinued. -CAD with 3 stents in 2002 -Seizure disorder Keppra -Gout patient on allopurinol and colchicine -GERD Pepcid -Acute on Chronic congestive heart failure from ischemic cardiomyopathy. EF 10- 15%.: Better Followed by cardiology Dr. REDDY Bailey. IV Lasix discontinued. Demadex -Cardial renal syndrome. Baseline creatinine not known. We will request co lostomy was to [place]. Renal ultrasound. Strict I's and O's. Patient UA is 2+ protein.: Worsening Admission creatinine 2.01. Creatinine went up to 2.47. Nephrology following. -Persistent atrial fibrillation Pacemaker. Coumadin. -AICD/pacemaker with cardiac synchronization. -Hyponatremia, likely from volume contraction secondary to Lasix.: Samsca prescribed by nephrology IV Lasix discontinued. Oral Demadex. Given dose of Samsca. Increase activity. Some episode of reported change in speech by nurse yesterday. Possibly from a dry mouth. Seen by neurology. No neuro event. Discussed with patient and . Past Medical History Past Medical History: Atrial Fibrillation, Heart Failure, CVA/TIA, GERD/Reflux, Hyperlipidemia, Hypertension, Myocardial Infarction ([place]), Seizure Disorder Additional Past Medical History / Comment(s): [place] x3, CVA 10-12 yrs. ago-started keppra after, last seizure >10 yrs. ago, has had colon polyp that keeps coming back Last Myocardial Infarction Date:: August 2002 History of Any Multi-Drug Resistant Organisms: None Reported Past Surgical History: AICD, Heart Catheterization With Stent, Orthopedic Surgery Additional Past Surgical History / Comment(s): colonoscopies, cristel. shoulder gross rg. as a teen, BILAT CATARACTS REMOVED WITH LENS IMPLANTS Past Anesthesia/Blood Transfusion Reactions: No Reported Reaction Date of Last Stent Placement:: 2002 Type of Cardiac Device: Permanent Pacemaker, AICD Device Placement Date:: [employer]-replaced in 2019 Past Psychological History: Anxiety Smoking Status: Former smoker Past Alcohol Use History: None Reported Past Drug Use History: None Reported - Past Family History Mother Family Medical History: No Reported History Medications and Allergies Home Medications Medication Instructions Recorded Confirmed Type Aspirin 81 mg PO DAILY 10/22/20 11/23/22 History Atorvastatin [Lipitor] 40 mg PO HS 10/22/20 11/23/22 History Famotidine [Pepcid] 40 mg PO BID 10/22/20 11/23/22 History Nitroglycerin Sl Tabs [Nitrostat] 0.4 mg SL Q5M PRN 10/22/20 11/23/22 History Spironolactone [Aldactone] 25 mg PO DAILY 10/22/20 11/23/22 History Warfarin [Coumadin] 5 mg PO MOFR@1800 10/22/20 11/23/22 History levETIRAcetam [Keppra] 500 mg PO DAILY 10/22/20 11/23/22 History ALPRAZolam [Xanax] 0.25 mg PO DAILY PRN 11/23/22 11/23/22 History Colchicine 0.6 mg PO BID 11/23/22 11/23/22 History Sotalol [Betapace] 120 mg PO DAILY 11/23/22 11/23/22 History Torsemide [Demadex] 100 mg PO DAILY 11/23/22 11/23/22 History Torsemide [Demadex] 100 mg PO DAILY PRN 11/23/22 11/23/22 History Warfarin [Coumadin] 2.5 mg PO SUTUWETHSA@1800 11/23/22 11/23/22 History allopurinoL 100 mg PO DAILY 11/23/22 11/23/22 History carvediloL [Coreg] 12.5 mg PO BID 11/23/22 11/23/22 History levETIRAcetam [Keppra] 1,000 mg PO HS 11/23/22 11/23/22 History lisinopriL [Zestril] 5 mg PO HS 11/23/22 11/23/22 History predniSONE See Taper PO DIRECTED 11/23/22 11/23/22 History Allergies Allergy/AdvReac Type Severity Reaction Status Date / Time No Known Allergies Allergy Verified 11/23/22 13:28
[2022-11-25] MEDS ORDERED: WARFARIN 0.5 MG TAB PO ONE (18:00)
--- NOTE | 2022-11-25 19:05 | US ---
EXAMINATION TYPE: US carotid duplex BILAT DATE OF EXAM: 11/25/2022 COMPARISON: NONE CLINICAL INDICATION: Male, 72 years old with history of stroke. Worsening aphasia; TECHNIQUE: Carotid duplex ultrasound examination. Indirect Doppler criteria was utilized. FINDINGS: EXAM MEASUREMENTS: RIGHT: Peak Systolic Velocity (PSV) cm/sec ----- Right CCA: 42.9 ----- Right ICA: 62.4 ----- Right ECA: 27.9 ICA/CCA ratio: 1.5 RIGHT: End Diastole cm/sec ----- Right CCA: 9.09 ----- Right ICA: 20.1 ----- Right ECA: 0 LEFT: Peak Systolic Velocity (PSV) cm/sec ----- Left CCA: 55.9 ----- Left ICA: 53.3 ----- Left ECA: 71.5 ICA/CCA ratio: 1.0 LEFT: End Diastole cm/sec ----- Left CCA: 13.6 ----- Left ICA: 14.3 ----- Left ECA: 12.3 VERTEBRALS (direction of flow): Right Vertebral: Antegrade Left Vertebral: Antegrade Rhythm: Normal TARE MAN NOTES: Bilateral plaque visualized No significant stenosis seen IMPRESSION: Less than 50% stenosis of the bilateral carotid bifurcations. Criteria for Assigning % of Stenosis / Diameter reduction (Estimation based on the indirect measurements of the internal carotid artery velocities (ICA PSV). 1. Normal (no stenosis)=ICA PSV < 125 cm/s: ratio < 2.0: ICA EDV<40 cm/s. 2. Less than 50% stenosis=ICA PSV < 125 cm/s: ratio < 2.0: ICA EDV<40 cm/s. 3. 50 to 69% stenosis=ICA PSV of 125 to 230 cm/s: ration 2.0 ? 4.0: ICA EDV 40-100 cm/s. 4. Greater than 70% stenosis to near occlusion= ICA PSV > 230 cm/s: ratio > 4.0: ICA EDV > 100 cm/s. 5. Near occlusion= ICA PSV velocities may be low or undetectable: variable ratio and ICA EDV. 6. Total occlusion=unable to detect flow.
[2022-11-25 19:27] VITALS: PULSE 83; TEMP 98.1
[2022-11-25] MEDS ORDERED: SODIUM CHLORIDE 0.9% 500 ML 200 ML IV ONE (21:43)
[2022-11-25] MEDS ORDERED: MORPHINE SULFATE 2 MG/ML SYRINGE IVP PRN (21:55)
[2022-11-25] MEDS: ATORVASTATIN 40 MG TAB PO SCH (22:34)
[2022-11-25 22:58] LABS: Glucose,Whole Blood 201 mg/dL (70-110)
[2022-11-25] MEDS ORDERED: LIDOCAINE-D5W PMX 2G/250ML 2,000 MG in DEXTROSE/WATER 1 250ML.BAG IV SCH (23:30)
[2022-11-25] MEDS ORDERED: LIDOCAINE 2% SYG (PF) 100 MG/5 ML IV ONE (23:30)
[2022-11-25] MEDS ORDERED: AMIODARONE 360 MG in DEXTROSE 5% IN WATER 200 ML IV ONE ×2 (23:30)
[2022-11-25 23:31] LABS: ALT 745 U/L (4-49); AST 495 U/L (17-59); African American GFR (CKD) 36 (>60 ml/min/1.73 sqM); Alkaline Phosphatase 140 U/L (38-126); Anion Gap 13 mmol/L; Blood Urea Nitrogen 61 mg/dL (9-20); Calcium 8.1 mg/dL (8.4-10.2); Carbon Dioxide 17 mmol/L (22-30); Chloride 96 mmol/L (98-107); Glucose 178 mg/dL (74-99); Magnesium 2.1 mg/dL (1.6-2.3); Non-African American GFR(CKD) 31 (>60 ml/min/1.73 sqM); Potassium 3.7 mmol/L (3.5-5.1); Sodium 126 mmol/L (137-145); Total Bilirubin 1.1 mg/dL (0.2-1.3); Total Protein 5.5 g/dL (6.3-8.2)
[2022-11-25] MEDS ORDERED: propofoL 100 ML IV ONE (23:34)
[2022-11-26] MEDS ORDERED: MEXILETINE 200 MG CAP PO SCH
--- NOTE | 2022-11-26 00:02 | XR ---
EXAM: XR Chest, 1 View CLINICAL HISTORY: vfib TECHNIQUE: Frontal view of the chest. COMPARISON: 11/23/2022 FINDINGS: Lungs: The pulmonary vasculature appears somewhat prominent and equalized. Subsegmental opacities in the right central mid to lower lung zone are identified. Pleural space: Unremarkable. No pneumothorax. No large pleural effusion. Heart: Prominent cardiomegaly, increased in size from the previous examination. Biventricular defibrillator pacer leads noted, stable. Mediastinum: No significant abnormality identified. The trachea is midline. Bones/joints: Unremarkable. Tubes, lines and devices: Nasogastric tube tip cannot be seen but is below the diaphragm. The endotracheal tube (ETT) is in satisfactory position with tip 4.7 cm above the trina. IMPRESSION: 1. Prominent cardiomegaly, increased in size from the previous examination. Biventricular defibrillator pacer leads noted, stable. 2. The pulmonary vasculature appears somewhat prominent and equalized. Subsegmental opacities in the right central mid to lower lung zone are identified. Differential considerations include asymmetric edema versus subtle infection. No pleural effusion or pneumothorax. 3. Support tubes and lines, as noted above.
[2022-11-26 00:13] LABS: ABG Base Excess -3.9 mmol/L; ABG HCO3 21 mmol/L (21-25); ABG PCO2 36 mmHg (35-45); ABG PH 7.38 (7.35-7.45); ABG PO2 245 mmHg (83-108); ABG TCO2 22 mmol/L (19-24); Allen Test Performed? Yes
[2022-11-26 00:19] LABS: ABG Oxygen Saturation 99.3 % (94-97)
--- NOTE | 2022-11-26 01:02 | P.PCN ---
Date of Procedure: 11/25/22 Preoperative Diagnosis: Cardiac arrest Postoperative Diagnosis: Cardiac arrest Procedure(s) Performed: Insertion of a left wrist radial arterial line Indications for Procedure: Continuous blood pressure monitoring and frequent blood draws Description of Procedure: Informed consent was obtained, and a procedural timeout was performed . The patient was placed in supine position. The left radial region was prepared in a sterile fashion, and a sterile drape was applied. The left radial artery was palpated, easily cannulated, and a guidewire was placed. A Cook catheter was inserted over the guidewire, and the guidewire was removed. There was good arterial blood flow, good arterial waveform, and no complications. The line was secured with using a 3-0 silk suture.
--- NOTE | 2022-11-26 01:55 | P.CNPUL ---
History of Present Illness Consult date: 11/26/22 Requesting physician: Fernando Mckay Reason for consult: other (Cardiac arrest; ICU management) Chief complaint: V. fib cardiac arrest History of present illness: I am seeing this patient in new consultation today 11/26/2022 after the patient experienced a cardiac arrest on the cardiac stepdown unit. Patient is a 72-year-old white male with past medical history significant for severe ischemic cardiomyopathy with an ejection fraction of 10-15% with a AICD/pacemaker, atrial fibrillation, CVA/TIA, hypertension, hyperlipidemia, and seizure disorder. Patient presented to the to the emergency room on November 23 for concerns of dyspnea, and had a V. fib cardiac arrest while in the emergency room. Down-time was estimated be 20 seconds, his AICD did fire, and successfully terminated rhythm. He was admitted to the cardiac floor for further work up. We were consulted late last night after the patient had a subsequent witnessed V. fib cardiac arrest. Patient was resuscitated per ACLS, and ROSC was initially achieved. I believe his AICD did fire. ECG at that time showed a V paced rhythm. Sound physician did respond to the code, and the patient had additional v.fib/v.tach arrests. He was given 300 mg amiodarone bolus. Cardiology was contacted, the patient was then started on a lidocaine infusion. He was transferred to the intensive care unit, and intubated by the TOURIST INFORMATION ASSISTANT. Post-intuba tion chest x-ray showed endotracheal tube 4.7 cm above the trina, prominent cardiomegaly increased in size from previous examination and pulmonary vasculature somewhat more prominent. No obvious pleural effusions or pneumothorax. Initial ventilator settings were assist control, respiratory rate 16, tidal volume 400, FiO2 100%, and a PEEP of 5. ABGs on these settings showed a pO2 of 245, pCO2 35.6, pH of 7.38. Patient was started on propofol for sedation at 10 mg/kg/m. Also, patient was started on norepinephrine which was infusing at 0.5 mcg/kg/m. Follow-up CMP showed a sodium 126, potassium 3.7, chloride 96, serum bicarb 17, BUN 61, creatinine 2.08, glucose 178. Magnesium 2.1. He was given a 1 liter normal saline bolus during the resuscitation attempt. The patient was given 2 A of sodium bicarbonate IV push during the code. Troponin was redrawn and is stable at 0.09. LFTs are elevated. Unfortunately, the patient had multiple subsequent episodes of PEA cardiac arrests. Combined total downtime estimated to be over 30 minutes, Patient's did respond to the hospital, and made him a DO NOT RESUSCITATE. Patient at 0021. Review of Systems ROS unobtainable: due to endotracheal tube Past Medical History Past Medical History: Atrial Fibrillation, Heart Failure, CVA/TIA, GERD/Reflux, Hyperlipidemia, Hypertension, Myocardial Infarction ([place]), Seizure Disorder Additional Past Medical History / Comment(s): [place] x3, CVA 10-12 yrs. ago-started keppra after, last seizure >10 yrs. ago, has had colon polyp that keeps coming back Last Myocardial Infarction Date:: August 2002 History of Any Multi-Drug Resistant Organisms: None Reported Past Surgical History: AICD, Heart Catheterization With Stent, Orthopedic Surgery Additional Past Surgical History / Comment(s): colonoscopies, cristel. shoulder surg. as a teen, BILAT CATARACTS REMOVED WITH LENS IMPLANTS Past Anesthesia/Blood Transfusion Reactions: No Reported Reaction Date of Last Stent Placement:: 2002 Type of Cardiac Device: Permanent Pacemaker, AICD Device Placement Date:: Qu[employer] [place]-replaced in 2019 Past Psychological History: Anxiety Smoking Status: Former smoker Past Alcohol Use History: None Reported Past Drug Use History: None Reported - Past Family History Mother Family Medical History: No Reported History Medications and Allergies Home Medications Medication Instructions Recorded Confirmed Type Atorvastatin [Lipitor] 40 mg PO HS 10/22/20 11/23/22 History Famotidine [Pepcid] 40 mg PO BID 10/22/20 11/23/22 History Nitroglycerin Sl Tabs [Nitrostat] 0.4 mg SL Q5M PRN 10/22/20 11/23/22 History RX: Aspirin 81 mg PO DAILY 10/22/20 11/23/22 History Spironolactone [Aldactone] 25 mg PO DAILY 10/22/20 11/23/22 History Warfarin [Coumadin] 5 mg PO MOFR@1800 10/22/20 11/23/22 History levETIRAcetam [Keppra] 500 mg PO DAILY 10/22/20 11/23/22 History ALPRAZolam [Xanax] 0.25 mg PO DAILY PRN 11/23/22 11/23/22 History RX: Colchicine 0.6 mg PO BID 11/23/22 11/23/22 History RX: allopurinoL 100 mg PO DAILY 11/23/22 11/23/22 History RX: predniSONE See Taper PO DIRECTED 11/23/22 11/23/22 History Sotalol [Betapace] 120 mg PO DAILY 11/23/22 11/23/22 History Torsemide [Demadex] 100 mg PO DAILY 11/23/22 11/23/22 History Torsemide [Demadex] 100 mg PO DAILY PRN 11/23/22 11/23/22 History Warfarin [Coumadin] 2.5 mg PO SUTUWETHSA@1800 11/23/22 11/23/22 History carvediloL [Coreg] 12.5 mg PO BID 11/23/22 11/23/22 History levETIRAcetam [Keppra] 1,000 mg PO HS 11/23/22 11/23/22 History lisinopriL [Zestril] 5 mg PO HS 11/23/22 11/23/22 History Allergies Allergy/AdvReac Type Severity Reaction Status Date / Time No Known Allergies Allergy Verified 11/23/22 13:28 Physical Exam Vitals: Vital Signs Temp Pulse Resp BP Pulse Ox 11/25/22 22:00 80/57 11/25/22 21:39 89/59 11/25/22 21:12 82/60 11/25/22 19:21 98.1 F 83 22 94/67 99 11/25/22 16:00 99 F 77 18 94/58 97 11/25/22 12:50 98.2 F 76 16 99/62 96 11/25/22 08:00 98.6 F 77 18 90/59 98 11/25/22 04:00 98.2 F 84 18 97/62 95 11/25/22 01:49 83 18 Intake and Output 11/25/22 11/25/22 11/26/22 14:59 22:59 06:59 Intake Total 360 Output Total 825 Balance -465 Intake: Oral 360 Output: Urine 825 GENERAL EXAM: Unresponsive, cardiac resuscitation ongoing HEAD: Normocephalic and atraumatic EYES: Pupils are unequal and unresponsive to light NECK: No masses. There is severe JVD CHEST: Chest appears concave post CPR, no obvious subcu emphysema LUNGS: Equal breath sounds, good color change with intubation, tube placement confirmed with chest x-ray. currently intubated with mechanical ventilator. CVS: S1 and S2 normal with no audible murmur, regular rhythm. No extra heart sounds ABDOMEN: Abdomen is soft and nonrigid SKIN: Skin is dusky, cyanotic, and diaphoretic CENTRAL NERVOUS SYSTEM: Unresponsive even to painful stimuli. EXTREMITIES: Pulses are weak and thready throughout, there is acrocyanosis Results - Laboratory Findings CBC and BMP: 11/23/22 09:28 11/25/22 23:05 ABG ABG pH 7.38 (7.35-7.45) 11/26/22 00:08 ABG pCO2 36 mmHg (35-45) 11/26/22 00:08 ABG pO2 245 mmHg (83-108) H 11/26/22 00:08 ABG O2 Saturation 99.3 % (94-97) H 11/26/22 00:08 PT/INR, D-dimer PT 32.5 sec (9.0-12.0) H 11/25/22 08:26 INR 3.3 (<1.2) H 11/25/22 08:26 Abnormal lab findings: Abnormal Labs 11/23/22 11/23/22 11/23/22 09:28 09:28 09:28 Plt Count 128 L Neutrophils # 9.1 H Lymphocytes # 0.3 L PT 25.6 H INR 2.6 H APTT 31.7 H ABG pO2 ABG O2 Saturation Sodium 129 L Chloride 90 L Carbon Dioxide BUN 38 H Creatinine 2.01 H Glucose 116 H POC Glucose (mg/dL) Calcium Total Bilirubin 1.4 H AST 89 H ALT 149 H Alkaline Phosphatase Troponin I Total Protein Albumin HDL Cholesterol Urine Protein Urine Bacteria Hyaline Casts Urine Mucus 11/23/22 11/23/22 11/23/22 09:28 09:28 13:12 Plt Count Neutrophils # Lymphocytes # PT INR APTT ABG pO2 ABG O2 Saturation Sodium Chloride Carbon Dioxide BUN Creatinine Glucose POC Glucose (mg/dL) Calcium Total Bilirubin AST ALT Alkaline Phosphatase Troponin I 0.086 H* 0.071 H* Total Protein Albumin HDL Cholesterol Urine Protein 2+ H Urine Bacteria Rare H Hyaline Casts 30 H Urine Mucus Rare H 11/23/22 11/24/22 11/24/22 16:03 07:29 07:29 Plt Count Neutrophils # Lymphocytes # PT 26.9 H INR 2.8 H APTT ABG pO2 ABG O2 Saturation Sodium 126 L Chloride 90 L Carbon Dioxide BUN 56 H Creatinine 2.47 H Glucose 104 H POC Glucose (mg/dL) Calcium 8.0 L Total Bilirubin AST ALT Alkaline Phosphatase Troponin I 0.109 H* Total Protein Albumin HDL Cholesterol 37.40 L Urine Protein Urine Bacteria Hyaline Casts Urine Mucus 11/24/22 11/25/22 11/25/22 16:58 08:26 08:26 Plt Count Neutrophils # Lymphocytes # PT 32.5 H INR 3.3 H APTT ABG pO2 ABG O2 Saturation Sodium 127 L 126 L Chloride 92 L 95 L Carbon Dioxide 20 L BUN 58 H 59 H Creatinine 2.32 H 1.89 H Glucose 140 H POC Glucose (mg/dL) Calcium 7.8 L 7.6 L Total Bilirubin AST ALT Alkaline Phosphatase Troponin I Total Protein Albumin HDL Cholesterol Urine Protein Urine Bacteria Hyaline Casts Urine Mucus 11/25/22 11/25/22 11/25/22 22:11 22:55 23:05 Plt Count Neutrophils # Lymphocytes # PT INR APTT ABG pO2 ABG O2 Saturation Sodium Chloride Carbon Dioxide BUN Creatinine Glucose POC Glucose (mg/dL) 201 H Calcium Total Bilirubin AST ALT Alkaline Phosphatase Troponin I 0.077 H* 0.090 H* Total Protein Albumin HDL Cholesterol Urine Protein Urine Bacteria Hyaline Casts Urine Mucus 11/25/22 11/26/22 23:05 00:08 Plt Count Neutrophils # Lymphocytes # PT INR APTT ABG pO2 245 H ABG O2 Saturation 99.3 H Sodium 126 L Chloride 96 L Carbon Dioxide 17 L BUN 61 H Creatinine 2.08 H Glucose 178 H POC Glucose (mg/dL) Calcium 8.1 L Total Bilirubin AST 495 H ALT 745 H Alkaline Phosphatase 140 H Troponin I Total Protein 5.5 L Albumin 3.0 L HDL Cholesterol Urine Protein Urine Bacteria Hyaline Casts Urine Mucus - Diagnostic Findings Chest x-ray: image reviewed Assessment and Plan Assessment: Cardiac arrest, status post multiple resuscitation attempts. Presenting rhythm was v.fib, patient initially achieved ROSC. Unfortunately, He did have multiple subsequent episodes of PEA cardiac arrest. Total combined estimated downtime to be over 30 minutes. Patient at 0021 with his at the bedside. Acute hypoxemic respiratory failure, secondary to above, intubated during the resuscitation attempt. History of severe ischemic cardiomyopathy with an ejection fraction of 10-15% with an AICD/pacemaker. Elevated troponins, stable. Acute kidney injury Hyponatremia Transminitis, related to shock liver Coronary artery disease, with previous coronary stents History of paroxysmal atrial fibrillation History of prior CVA/TIA History of seizure disorder ACLS protocol was followed during the resuscitation attempt. Sound physicians did respond to the CODE BLUE. Patient was transferred to the ICU. Patient was intubated during the code by TOURIST INFORMATION ASSISTANT. Good color changes, and ET tube placement was confirmed with CXR. A left wrist radial arterial line was placed for continuous blood pressure monitoring. ABGs were noted. Cardiology was contacted, and started the patient on a lidocaine infusion. Patient was fluid resuscitated and required high dose norepinephrine for blood pressure support. Patent's did present to the hospital. Unfortunately, despite aggressive resuscitation attempts, the patient succumbed 0021. Please see code record for additional documentation. I have personally seen and examined the patient, performed the documentation and the assessment and plan as written. Number of minutes spent on the visit:30. Time with Patient: Greater than 30
[2022-11-26 02:06] VITALS: RESP 18
[2022-11-26 03:17] VITALS: BP 33/26
--- NOTE | 2022-11-26 05:42 | PN ---
PROGRESS NOTE SUBJECTIVE: Mr. Burgos remains in sinus rhythm with occasional paced beats. He is doing better today. No further arrhythmia. He is off Sotalol. Advised to resume his home medication of torsemide today and he can be discharged and he will follow up with Dr. Augie Fan at [facility]. OBJECTIVE: VITAL SIGNS: Stable. NECK: JVD 1 cm. No carotid bruits. HEART: S1, S2 heard normally. Short systolic murmur noted. LUNGS: Revealed diminished air entry. ABDOMEN: Soft. LOWER EXTREMITIES: Revealed diminished pulses. CENTRAL NERVOUS SYSTEM: Grossly within normal limits. MMODL / IJN: [id number] /
[2022-11-26] MEDS ORDERED: AMIODARONE 450 MG in DEXTROSE 5% IN WATER 250 ML IV SCH ×2 (06:00)
--- NOTE | 2022-11-26 17:48 | P.DS ---
Providers Date of admission: 11/23/22 12:10 Expected date of discharge: 11/26/22 (Patient ) Attending physician: Deepak Morelos Consults: 11/23/22 12:10 Consult Physician Stat Consulting Provider: Bernard Mora Consult Reason/Comments: Cardiac arrest Do you want consulting provider notified?: Already Contacted 11/24/22 09:47 Consult Physician Routine Consulting Provider: Kody Landers Consult Reason/Comments: worsening kidney function Do you want consulting provider notified?: Yes 11/25/22 07:30 Consult Physician Routine Consulting Provider: Franklyn Toro Consult Reason/Comments: aphasia Do you want consulting provider notified?: Yes, Notify in am 11/26/22 00:17 Consult Physician Stat Consulting Provider: Alejo Blake Consult Reason/Comments: Cardiac arrest; ICU management Do you want consulting provider notified?: Already Contacted Primary care physician: Cristianoosman [place] [facility] Course: Chief Complaint: Short of breath This is a pleasant 72-year-old patient who follows with Dr. Cristiano Love. Cardiologists are [facility] sandip Ghosh. Back in 2002 patient was being considered for heart transplant. He underwent an cardiac resynchronization therapy along with a pacemaker. That turned out reviewed other effective. Patient had 3 coronary stents placed in 2002. No recent stres s test. Patient was admitted to [facility] about 2 weeks ago. There for 4 days. Given IV diuretics. Lost about 8 pounds. Discharged home on different diuretics. Was stable. In the last 2 days patient started noticing decreased urine output. Also notices some chest pressure. Not feeling well. Denies any edema, any orthopnea. In the ER patient had a witnessed cardiac arrest. Apparently was in V. fib. His pacemaker went off. Patient received CPR for about 20 seconds. Had no pulse had loss consciousness. is present. Patient feels back to his normal self. Admitted with unstable angina. Episode of V. fib in the ER. Possible CHF. November 24: Breathing better. Sitting edge of the bed. Seen by cardiology. [place] a prolonged QT interval. Possibly from sotalol. Sotalol was discontinued. Seen by Dr. REDDY Bailey from cardiology. Started on IV Lasix. Nephrology consulted. Strict I's and O's. Discussed with patient and . November 25: Laying in bed. Comfortable. IV Lasix change control coordinator to Demadex per cardiology. Seen by nephrology. 1 dose of Samsca given. Sodium low at 126. Late afternoon yesterday nurse at called me that patient was speech was slightly off. Questionable dry mouth. Concern of new event. Head CT scan and neurology consult was done. Patient feels well this morning. November 26: Overnight patient underwent episodes of PEA/cardiac arrest. Moved to the ICU. Intubated. was contacted. Patient . Social history: Smoked a pack a day for 35 years stopped in 2002. No alcohol now. 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 . INVESTIGATIONS, reviewed in the clinical context: November 25: INR 3.3 sodium 126 potassium 3.5 BUN 59 creatinine 1.89 2-D echocardiogram: EF 10-15%. Global hypokinesis. Severe mitral r egurgitation. Moderate TR. November 24: INR 2.8. Sodium 126. Potassium 3.8. BUN 56 creatinine. Creatinine 2.47 White count 10 hemoglobin 16.2 platelets 128 INR 2.6 sodium 129 potassium 4.5 BUN 38 creatinine 2.01 AST 89 ALT 149 Troponin I 0.086, 0.071 ProBNP 62014 TSH 1.8 Influenza type A, B, RSV, COVID-19: Not detected EKG tracing personally reviewed by me-biventricular paced Chest x-ray film personally reviewed by me-cardiomegaly. Pacemaker. Some hyperinflation Cause of : Coronary artery disease Assessment and plan: -Episode of ventricular fibrillation with a short cardiac arrest in the ER. [place] to be secondary to prolonged QT interval from sotalol. Witnessed. AICD went off. Downtime less than a minute. Sotalol discontinued. -CAD with 3 stents in 2002 -Seizure disorder Keppra -Gout patient on allopurinol and colchicine -GERD Pepcid -Acute on Chronic congestive heart failure from ischemic cardiomyopathy. EF 10- 15%.: Better Followed by cardiology Dr. REDDY Bailey. IV Lasix discontinued. Demadex -Cardial renal syndrome. Baseline creatinine not known. We will request colostomy was to [place]. Renal ultrasound. Strict I's and O's. Patient UA is 2+ protein.: Worsening Admission creatinine 2.01. Creatinine went up to 2.47. Nephrology following. -Persistent atrial fibrillation Pacemaker. Coumadin. -AICD/pacemaker with cardiac synchronization. -Hyponatremia, likely from volume contraction secondary to Lasix.: Samsca prescribed by nephrology Disposition: Past Medical History Past Medical History: Atrial Fibrillation, Heart Failure, CVA/TIA, GERD/Reflux, Hyperlipidemia, Hypertension, Myocardial Infarction ([place]), Seizure Disorder Additional Past Medical History / Comment(s): [place] x3, CVA 10-12 yrs. ago-started keppra after, last seizure >10 yrs. ago, has had colon polyp that keeps coming back Last Myocardial Infarction Date:: August 2002 History of Any Multi-Drug Resistant Organisms: None Reported Past Surgical History: AICD, Heart Catheterization With Stent, Orthopedic Surgery Additional Past Surgical History / Comment(s): colonoscopies, cristel. shoulder surg. as a teen, BILAT CATARACTS REMOVED WITH LENS IMPLANTS Past Anesthesia/Blood Transfusion Reactions: No Reported Reaction Date of Last Stent Placement:: 2002 Type of Cardiac Device: Permanent Pacemaker, AICD Device Placement Date:: Downstream-replaced in 2019 Past Psychological History: Anxiety Smoking Status: Former smoker Past Alcohol Use History: None Reported Past Drug Use History: None Reported - Past Family History Mother Family Medical History: No Reported History Medications and Allergies Home Medications Medication Instructions Recorded Confirmed Type Aspirin 81 mg PO DAILY 10/22/20 11/23/22 History Atorvastatin [Lipitor] 40 mg PO HS 10/22/20 11/23/22 History Famotidine [Pepcid] 40 mg PO BID 10/22/20 11/23/22 History Nitroglycerin Sl Tabs [Nitrostat] 0.4 mg SL Q5M PRN 10/22/20 11/23/22 History Spironolactone [Aldactone] 25 mg PO DAILY 10/22/20 11/23/22 History Warfarin [Coumadin] 5 mg PO MOFR@1800 10/22/20 11/23/22 History levETIRAcetam [Keppra] 500 mg PO DAILY 10/22/20 11/23/22 History ALPRAZolam [Xanax] 0.25 mg PO DAILY PRN 11/23/22 11/23/22 History Colchicine 0.6 mg PO BID 11/23/22 11/23/22 History Sotalol [Betapace] 120 mg PO DAILY 11/23/22 11/23/22 History Torsemide [Demadex] 100 mg PO DAILY 11/23/22 11/23/22 History Torsemide [Demadex] 100 mg PO DAILY PRN 11/23/22 11/23/22 History Warfarin [Coumadin] 2.5 mg PO SUTUWETHSA@1800 11/23/22 11/23/22 History allopurinoL 100 mg PO DAILY 11/23/22 11/23/22 History carvediloL [Coreg] 12.5 mg PO BID 11/23/22 11/23/22 History levETIRAcetam [Keppra] 1,000 mg PO HS 11/23/22 11/23/22 History lisinopriL [Zestril] 5 mg PO HS 11/23/22 11/23/22 History predniSONE See Taper PO DIRECTED 11/23/22 11/23/22 History Allergies Allergy/AdvReac Type Severity Reaction Status Date / Time No Known Allergies Allergy Verified 11/23/22 13:28 Plan - Discharge Summary Discharge Rx Participant: No New Discharge Prescriptions: No Action Aspirin 81 mg PO DAILY levETIRAcetam [Keppra] 500 mg PO DAILY predniSONE See Taper PO DIRECTED allopurinoL 100 mg PO DAILY ALPRAZolam [Xanax] 0.25 mg PO DAILY PRN PRN Reason: Anxiety lisinopriL [Zestril] 5 mg PO HS Torsemide [Demadex] 100 mg PO DAILY Warfarin [Coumadin] 5 mg PO MOFR@1800 Atorvastatin [Lipitor] 40 mg PO HS Spironolactone [Aldactone] 25 mg PO DAILY Famotidine [Pepcid] 40 mg PO BID Nitroglycerin Sl Tabs [Nitrostat] 0.4 mg SL Q5M PRN PRN Reason: Chest Pain Colchicine 0.6 mg PO BID Warfarin [Coumadin] 2.5 mg PO SUTUWETHSA@1800 Sotalol [Betapace] 120 mg PO DAILY levETIRAcetam [Keppra] 1,000 mg PO HS carvediloL [Coreg] 12.5 mg PO BID Torsemide [Demadex] 100 mg PO DAILY PRN PRN Reason: noticeable weight gain Discharge Medication List Aspirin 81 mg PO DAILY 10/22/20 [History] Atorvastatin [Lipitor] 40 mg PO HS 10/22/20 [History] Famotidine [Pepcid] 40 mg PO BID 10/22/20 [History] Nitroglycerin Sl Tabs [Nitrostat] 0.4 mg SL Q5M PRN 10/22/20 [History] Spironolactone [Aldactone] 25 mg PO DAILY 10/22/20 [History] Warfarin [Coumadin] 5 mg PO MOFR@1800 10/22/20 [History] levETIRAcetam [Keppra] 500 mg PO DAILY 10/22/20 [History] ALPRAZolam [Xanax] 0.25 mg PO DAILY PRN 11/23/22 [History] Colchicine 0.6 mg PO BID 11/23/22 [History] Sotalol [Betapace] 120 mg PO DAILY 11/23/22 [History] Torsemide [Demadex] 100 mg PO DAILY 11/23/22 [History] Torsemide [Demadex] 100 mg PO DAILY PRN 11/23/22 [History] Warfarin [Coumadin] 2.5 mg PO SUTUWETHSA@1800 11/23/22 [History] allopurinoL 100 mg PO DAILY 11/23/22 [History] carvediloL [Coreg] 12.5 mg PO BID 11/23/22 [History] levETIRAcetam [Keppra] 1,000 mg PO HS 11/23/22 [History] lisinopriL [Zestril] 5 mg PO HS 11/23/22 [History] predniSONE See Taper PO DIRECTED 11/23/22 [History] Follow up Appointment(s)/Referral(s): Cristiano Love DO [Primary Care Provider] - 1-2 days Discharge Disposition: - Preliminary Cause of Preliminary Cause of : Coronary artery disease
== END 2022-11-26 00:21 | disposition expired | DRG 682 ==
LOC: EC 08:23 → 3SCARD 12:10 → 2SICU 11-25 23:10
PROVIDERS: ADMIT Hospitalist; ATTEND Hospitalist
PROC: 4B02XTZ Measurement of Cardiac Defibrillator, External Approach (ICD-10-PCS; 2022-11-23)
PROC: 03HY32Z Insertion of Monitoring Device into Upper Artery, Percutaneous Approach (ICD-10-PCS; 2022-11-25)
PROC: 4A133B1 Monitoring of Arterial Pressure, Peripheral, Percutaneous Approach (ICD-10-PCS; 2022-11-25)
PROC: 4A133J1 Monitoring of Arterial Pulse, Peripheral, Percutaneous Approach (ICD-10-PCS; 2022-11-25)
PROC: 5A12012 Performance of Cardiac Output, Single, Manual (ICD-10-PCS; 2022-11-25)
PROC: 0D9670Z Drainage of Stomach with Drainage Device, Via Natural or Artificial Opening (ICD-10-PCS; 2022-11-25)
PROC: 0BH17EZ Insertion of Endotracheal Airway into Trachea, Via Natural or Artificial Opening (ICD-10-PCS; principal; 2022-11-26)
PROC: 5A1935Z Respiratory Ventilation, Less than 24 Consecutive Hours (ICD-10-PCS; principal; 2022-11-26)
DX: N17.0 Acute kidney failure with tubular necrosis (principal); I50.23 Acute on chronic systolic (congestive) heart failure; J96.01 Acute respiratory failure with hypoxia; K72.00 Acute and subacute hepatic failure without coma; I13.0 Hypertensive heart and chronic kidney disease with heart failure and stage 1 through stage 4 chronic kidney disease, or unspecified chronic kidney disease; E87.1 Hypo-osmolality and hyponatremia; I48.19 Other persistent atrial fibrillation; I25.110 Atherosclerotic heart disease of native coronary artery with unstable angina pectoris; I49.01 Ventricular fibrillation; I25.5 Ischemic cardiomyopathy; I08.1 Rheumatic disorders of both mitral and tricuspid valves; I46.2 Cardiac arrest due to underlying cardiac condition; I25.2 Old myocardial infarction; N18.30 Chronic kidney disease, stage 3 unspecified; G40.909 Epilepsy, unspecified, not intractable, without status epilepticus; I69.320 Aphasia following cerebral infarction; R94.31 Abnormal electrocardiogram [ECG] [EKG]; F41.9 Anxiety disorder, unspecified; Z66 Do not resuscitate; R63.4 Abnormal weight loss; Z79.01 Long term (current) use of anticoagulants; I95.9 Hypotension, unspecified; K21.9 Gastro-esophageal reflux disease without esophagitis; T44.7X5A Adverse effect of beta-adrenoreceptor antagonists, initial encounter; Z20.822 Contact with and (suspected) exposure to COVID-19; R77.8 Other specified abnormalities of plasma proteins; M10.9 Gout, unspecified; H02.402 Unspecified ptosis of left eyelid; Z68.23 Body mass index [BMI] 23.0-23.9, adult; T50.1X5A Adverse effect of loop [high-ceiling] diuretics, initial encounter; Z45.02 Encounter for adjustment and management of automatic implantable cardiac defibrillator; Z79.1 Long term (current) use of non-steroidal anti-inflammatories (NSAID); Z79.82 Long term (current) use of aspirin; Z79.899 Other long term (current) drug therapy; Z86.010 Personal history of colon polyps; Z95.5 Presence of coronary angioplasty implant and graft
CPT/HCPCS: 36415; 51702; 51798; 70450; 71045; 71046; 76770; 80048; 80053; 80061; 81001; 82533; 82805; 83735; 83880; 84439; 84443; 84481; 84484; 85025; 85610; 85730; 87636; 92950; 93005; 93306; 93880; 94002; 94760; 96374; 99291